=== PATIENT | female | born 1965 | race Caucasian/White ===

== ENCOUNTER 2018-02-22 08:20 | Emergency (ER) | payer MEDICARE, MEDICAID ==
[2018-02-22] MEDS ORDERED: NORMAL SALINE 1000 ML 1,000 ML IV ONE (09:01)
--- NOTE | 2018-02-22 09:22 | ER Document Report ---
ED General - General Chief Complaint: Possible Kidney Stone Stated Complaint: FLANK PAIN Time Seen by Provider: 02/22/18 08:32 - HPI Notes: Patient is a 52-year-old female that presents to the emergency department for chief complaint of back pain. Patient reports pain in her low back that is central. She states she feels this pain when she gets kidney stones. She has had kidney stone in the last few months and was seen by her urologist in [place]. Patient has chronic suprapubic Sanchez catheter which was changed on 01/31/18 by urology. She does report decreased appetite and decreased oral intake as well as decreased urine output. She has not had a bowel movement in 2 days. She denies any nausea and vomiting. She states her pain is worse when she lays on her side and slightly improved when she is laying on her back. She states his back pain feels the same as pain she has had with previous kidney stones. She denies injury or trauma. She denies any lower extremity numbness, weakness, saddle anesthesia, or fevers. Past Medical History: COPD, CHF, hypertension, hyperlipidemia, diabetes, ureterolithiasis Past Surgical History: Suprapubic Sanchez catheter Social History: Reviewed in chart Family History: Reviewed and noncontributory for presenting illness Allergies: Reviewed, see documented allergy list. REVIEW OF SYSTEMS: CONSTITUTIONAL : No fever No chills No diaphoresis No recent illness EENT: No vision changes No congestion No sore throat CARDIOVASCULAR: No chest pain No palpitations RESPIRATORY: No shortness of breath No cough No difficulty breathing GASTROINTESTINAL: No abdominal pain No nausea No vomiting No diarrhea GENITOURINARY: No dysuria No hematuria No difficulty urinating MUSCULOSKELETAL: back pain No leg pain No arm pain SKIN: No rashes No lesions LYMPHATIC: No swollen, enlarged glands. NEUROLOGICAL: No lightheadedness No headache No weakness No paresthesias PSYCHIATRIC: No anxiety No depression PHYSICAL EXAMINATION: Vital signs reviewed, nursing noted reviewed. GENERAL: Well-appearing, well-nourished and in no acute distress. HEAD: Atraumatic, normocephalic. EYES: Eyes appear normal, extraocular movements intact, sclera anicteric, conjunctiva are normal. ENT: nares patent, oropharynx clear without exudates. Moist mucous membranes. NECK: Normal range of motion, supple without lymphadenopathy LUNGS: Breath sounds clear to auscultation bilaterally and equal. No wheezes rales or rhonchi. HEART: Regular rate and rhythm without murmurs ABDOMEN: Suprapubic catheter ostomy clean, dry, intact with no drainage, abdomen soft, mildly distended, nontender, decreased bowel sounds. No rebound, guarding, or rigidity. No masses appreciated. EXTREMITIES: Nontender, good range of motion, no pitting or edema. Back: Diffuse lumbar tenderness to palpation, normal range of motion of spine, no thoracic tenderness, no overlying rash or erythema NEUROLOGICAL: No focal neurological deficits. Moves all extremities spontaneously Motor and sensory grossly intact on exam. PSYCH: Normal mood, normal affect. SKIN: Warm, Dry, normal turgor. - Related Data Allergies/Adverse Reactions: azithromycin [From Zithromax] Allergy (Verified 02/22/18 12:55) ciprofloxacin [From Cipro] Allergy (Verified 02/22/18 12:55) Penicillins Allergy (Verified 02/22/18 12:55) Sulfa (Sulfonamide Antibiotics) Allergy (Verified 02/22/18 12:55) Past Medical History - Social History Smoking Status: Current Some Day Smoker Family History: Reviewed & Not Pertinent Patient has suicidal ideation: No Patient has homicidal ideation: No - Past Medical History Cardiac Medical History: Reports: Hx Congestive Heart Failure, Hx Hypercholesterolemia, Hx Hypertension Pulmonary Medical History: Reports: Hx COPD Endocrine Medical History: Reports: Hx Diabetes Mellitus Type 2 Renal/ Medical History: Denies: Hx Peritoneal Dialysis GI Medical History: Reports: Hx Gastroesophageal Reflux Disease Psychiatric Medical History: Reports: Hx Depression Past Surgical History: Reports: Hx Gynecologic Surgery, Hx Kidney (Renal Surgery), Hx Orthopedic Surgery, Hx Urinary Tract Surgery Physical Exam - Vital signs Vitals: Resp BP Pulse Ox 20 148/89 H 95 02/22/18 08:34 02/22/18 08:34 02/22/18 08:34 Course - Re-evaluation Re-evalutation: 02/22/18 09:22 Vitals reviewed. Nursing notes reviewed. Patient is afebrile and nontoxic in appearance. She was given Toradol and fentanyl by EMS prior to arrival and s tates her pain has significantly improved. She will be given IV hydration in the emergency room. 02/22/18 13:[address] scan shows no ureterolithiasis. It does show moderate constipation and she was ordered magnesium citrate. Patient is refusing all interventions for her constipation including the magnesium citrate and enema. Patients Sanchez catheter was obstructed with sediment and was requiring replacement. I did perform this procedure with the assistance of her nurse. Patient tolerated replacement of her catheter well and the catheter is now functioning normally. Her renal function is unremarkable. She has no electrolyte derangements. Her urine is positive for infection and she will be started on Macrobid. Patient is not septic. She will follow with her urologist for reevaluation in the next few days. I did discuss her case with Dr. Rojas nurse practitioner who is in agreement with this plan of care. Laboratory 02/22/18 02/22/18 02/22/18 09:00 09:00 12:25 WBC 9.3 RBC 4.38 Hgb 11.5 L Hct 35.7 L MCV 81 MCH 26.2 L MCHC 32.2 RDW 16.0 H Plt Count 282 Seg Neutrophils % 79.9 H Lymphocytes % 11.3 L Monocytes % 6.0 Eosinophils % 2.5 Basophils % 0.3 Absolute Neutrophils 7.4 Absolute Lymphocytes 1.0 Absolute Monocytes 0.6 Absolute Eosinophils 0.2 Absolute Basophils 0.0 Sodium 142.8 Potassium 4.2 Chloride 105 Carbon Dioxide 30 Anion Gap 8 BUN 18 Creatinine 0.50 L Est GFR ( Amer) > 60 Est GFR (Non-Af Amer) > 60 Glucose 145 H Calcium 9.4 Total Bilirubin 0.6 Direct Bilirubin 0.3 Neonat Total Bilirubin Not Reportable Neonat Direct Bilirubin Not Reportable Neonat Indirect Bili Not Reportable AST 23 ALT 29 Alkaline Phosphatase 99 Total Protein 7.1 Albumin 4.1 Urine Color YELLOW Urine Appearance CLOUDY Urine pH 7.0 Ur Specific Ringle 1.009 Urine Protein NEGATIVE Urine Glucose (UA) NEGATIVE Urine Ketones NEGATIVE Urine Blood LARGE H Urine Nitrite POSITIVE H Urine Bilirubin NEGATIVE Urine Urobilinogen NEGATIVE Ur Leukocyte Esterase LARGE H Urine WBC (Auto) >182 Urine RBC (Auto) >182 Urine Bacteria (Auto) 3+ Urine WBC Clumps FEW U Non-Squamous Epis Auto 4 Urine Mucus (Auto) RARE Urine Yeast (Budding) PRESENT Urine Ascorbic Acid NEGATIVE Abdomen/Pelvis CT 02/22/18 09:00 IMPRESSION: 1. Moderate fecal retention. 2. Nonobstructing renal calculi. 02/22/18 13:04 - Vital Signs Vital signs: Temp Pulse Resp BP Pulse Ox 98.6 F 96 17 133/86 H 96 02/22/18 08:37 02/22/18 08:37 02/22/18 12:46 02/22/18 12:46 02/22/18 12:46 - Laboratory Result Diagrams: 02/22/18 09:00 02/22/18 09:00 Laboratory results interpreted by me: 02/22/18 02/22/18 02/22/18 09:00 09:00 12:25 Hgb 11.5 L Hct 35.7 L MCH 26.2 L RDW 16.0 H Seg Neutrophils % 79.9 H Lymphocytes % 11.3 L Creatinine 0.50 L Glucose 145 H Urine Blood LARGE H Urine Nitrite POSITIVE H Ur Leukocyte Esterase LARGE H Procedures - Additional Procedures catheter Time performed: 12:28 Notes: 02/22/18 12:28 Suprapubic Sanchez catheter replaced. Old catheter was removed after taking 20 cc normal saline out of the balloon. Using sterile technique a new catheter was replaced. 10 mL's of sterile saline were injected into the balloon. Ostomy was cleaned prior to insertion of catheter with Betadine. Let gel used to anesthetize area. Patient tolerated well with no immediate complications. Good urine flow was obtained. Discharge - Discharge Clinical Impression: Urinary retention UTI (urinary tract infection) Qualifiers: Urinary tract infection type: site unspecified Hematuria presence: with hematuria Qualified Code(s): N39.0 - Urinary tract infection, site not specified; R31.9 - Hematuria, unspecified Constipation Qualifiers: Constipation type: other constipation type Qualified Code(s): K59.09 - Other constipation Condition: Stable Disposition: HOME, SELF-CARE Instructions: Urinary Tract Infection ([facility]) Additional Instructions: Please return to the emergency department if you have any worsening, or concern of your symptoms. Please return to the emergency department if you develop chest pain, difficulty breathing, severe abdominal pain, or ongoing vomiting. Please follow-up with your primary care physician in 2-3 days and any other recommended physicians. If prescribed, take all medications as directed. If you have any questions or concerns do not hesitate to return the emergency department for evaluation. Follow-up with your urologist, Dr. Olivier, in the next few days for reevaluation Prescriptions: Nitrofurantoin Macrocrystal [Macrodantin] 100 mg PO BID #20 capsule
--- NOTE | 2018-02-22 09:34 | RADIOLOGY REPORT (SQ) ---
EXAM DESCRIPTION: CT ABD/PELVIS NO ORAL OR IV COMPLETED DATE/TIME: 02/22/2018 9:19 am REASON FOR STUDY: low back pain, kidney stone COMPARISON: None. TECHNIQUE: CT scan of the abdomen and pelvis performed without intravenous or oral contrast. Images reviewed with lung, soft tissue, and bone windows. Reconstructed coronal and sagittal MPR images revi ewed. All images stored on PACS. All CT scanners at this facility use dose modulation, iterative reconstruction, and/or weight based d osing when appropriate to reduce radiation dose to as low as reasonably achievable (ALARA). [facility]: Dose Right [facility]: CareDose [facility]: Dose Right [facility]: Teradose 4D [facility]: [employer] RADIATION DOSE: CT Rad equipment meets quality standard of care and radiation dose reduction techniq ues were employed. CTDIvol: 17.0 mGy. DLP: 958 mGy-cm.mGy. LIMITATIONS: None. FINDINGS: LOWER CHEST: No significant findings. No nodules or infiltrates. NON-CONTRASTED LIVER, SPLEEN, ADRENALS: Evaluation limited by lack of IV contrast. No identified sign ificant masses. PANCREAS: No masses. No peripancreatic inflammatory changes. GALLBLADDER: Surgically absent. RIGHT KIDNEY AND URETER: No suspicious masses. Assessment limited by lack of IV contrast. Renal sonali culi measuring up to 10 mm. No hydronephrosis or hydroureter. LEFT KIDNEY AND URETER: No suspicious masses. Assessment limited by lack of IV contrast. Reason sonali culi measuring up to 1 mm. No hydronephrosis or hydroureter. AORTA AND RETROPERITONEUM: No aneurysm. No retroperitoneal masses or adenopathy. BOWEL AND PERITONEAL CAVITY: Abundant fecal material from the cecum to the rectum. APPENDIX: Not visualized. PELVIS, BLADDER, AND ABDOMINAL WALL:Sanchez catheter in urinary bladder. BONES: Nothing acute. OTHER: No other significant finding. IMPRESSION: 1. Moderate fecal retention. 2. Nonobstructing renal calculi. COMMENT: Quality ID # [id number]: Final reports with documentation of one or more dose reduction techniques (e.g., Automated exposure control, adjustment of the mA and/or kV according to patient size, use of iterative reconstruction technique) TECHNICAL DOCUMENTATION: JOB ID: [id number] [employer]- All Rights Reserved Reading location - IP/workstation name: [email or web address]
[2018-02-22] MEDS ORDERED: MAGNESIUM CITRATE 296 ML BOTTLE PO ONE (09:41)
[2018-02-22 09:47] LABS: ABSOLUTE EOSINOPHILS # (AUTO) 0.2 10^3/uL (0.0-0.6); ABSOLUTE MONOCYTES (AUTO) 0.6 10^3/uL (0.1-1.4); ABSOLUTE NEUT (AUTO) 7.4 10^3/uL (1.7-8.2); BASOPHILS % (AUTO) 0.3 % (0-2); EOSINOPHILS % (AUTO) 2.5 % (0-6); HEMATOCRIT 35.7 % (36.0-47.0); HEMOGLOBIN 11.5 g/dL (12.0-15.5); LYMPHOCYTES % (AUTO) 11.3 % (13-45); MEAN CORPUSCULAR HEMOGLOBIN 26.2 pg (27.0-33.4); MEAN CORPUSCULAR HGB CONC 32.2 g/dL (32.0-36.0); MEAN CORPUSCULAR VOLUME 81 fl (80-97); PLATELET COUNT 282 10^3/uL (150-450); RED BLOOD COUNT 4.38 10^6/uL (3.72-5.28); SEGMENTED NEUTROPHILS % (AUTO) 79.9 % (42-78); TOTAL CELLS COUNTED % (AUTO) 100 %; WHITE BLOOD COUNT 9.3 10^3/uL (4.0-10.5)
[2018-02-22 10:14] LABS: ALANINE AMINOTRANSFERASE 29 U/L (9-52); ALBUMIN 4.1 g/dL (3.5-5.0); ALKALINE PHOSPHATASE 99 U/L (38-126); ANION GAP 8 (5-19); ASPARTATE AMINO TRANSFERASE 23 U/L (14-36); BILIRUBIN,DIRECT 0.3 mg/dL (0.0-0.4); BILIRUBIN,TOTAL 0.6 mg/dL (0.2-1.3); BLOOD UREA NITROGEN 18 mg/dL (7-20); CALCIUM 9.4 mg/dL (8.4-10.2); CARBON DIOXIDE 30 mmol/L (22-30); CHLORIDE 105 mmol/L (98-107); GLUCOSE 145 mg/dL (75-110); POTASSIUM 4.2 mmol/L (3.6-5.0); SODIUM 142.8 mmol/L (137-145); TOTAL PROTEIN 7.1 g/dL (6.3-8.2)
[2018-02-22] MEDS ORDERED: LIDOCAINE 4%/TETRACAINE 0.5%/EPI 0.18% 5 ML TOPICAL SOLN TOP ONE (12:20)
[2018-02-22 12:51] LABS: APPEARANCE,URINE CLOUDY; BILIRUBIN,URINE NEGATIVE (NEGATIVE); COLOR,URINE YELLOW; GLUCOSE, URINE NEGATIVE (NEGATIVE); KETONES,URINE NEGATIVE (NEGATIVE); LEUKOCYTE ESTERASE,URINE LARGE (NEGATIVE); NITRITE,URINE POSITIVE (NEGATIVE); PROTEIN,URINE NEGATIVE (NEGATIVE); URINE SPECIFIC GRAVITY 1.009; UROBILINOGEN,URINE NEGATIVE mg/dL (<2.0)
[2018-02-22] MEDS ORDERED: NITROFURANTOIN MONOHYD/M-CRYST 100 MG CAPSULE PO ONE (13:00)
[2018-02-22 18:29] VITALS: BP 139/87
== END 2018-02-22 16:40 | disposition home or self-care (01) ==
LOC: ER 08:20
DX: N39.0 Urinary tract infection, site not specified (principal); K59.09 Other constipation; R33.9 Retention of urine, unspecified; R10.9 Unspecified abdominal pain; M54.9 Dorsalgia, unspecified; Z46.6 Encounter for fitting and adjustment of urinary device; J44.9 Chronic obstructive pulmonary disease, unspecified; I50.9 Heart failure, unspecified; E78.5 Hyperlipidemia, unspecified; E11.9 Type 2 diabetes mellitus without complications; Z87.442 Personal history of urinary calculi; Z88.3 Allergy status to other anti-infective agents; Z88.0 Allergy status to penicillin; Z88.2 Allergy status to sulfonamides; F17.200 Nicotine dependence, unspecified, uncomplicated
CPT/HCPCS: 99285; 96360; 51702; 36415; 87086; 85025; 87088; 80053; 81001; 87186; 74176; C1758; J3490; J7030; A9270; J8499

== ENCOUNTER 2018-02-24 23:06 | Emergency (ER) | payer MEDICARE, MEDICAID ==
[2018-02-25] MEDS ORDERED: SENNOSIDES/DOCUSATE 8.6-50 MG 1 EACH TABLET PO ONE (01:31)
[2018-02-25] MEDS ORDERED: POLYETHYLENE GLYCOL 3350 POWDER 17 GM/1 PACKET PO ONE (01:31)
[2018-02-25] MEDS ORDERED: CEPHALEXIN 500 MG CAPSULE PO ONE (01:31)
--- NOTE | 2018-02-25 01:34 | ER Document Report ---
ED General - General Chief Complaint: Constipation Stated Complaint: CONSTIPATED Time Seen by Provider: 02/25/18 00:46 Cannot obtain history due to: Uncooperative Notes: Patient is a 52-year-old female with a past medical history of cerebral palsy, remote history of a small bowel obstruction, presents with complaints of continuing to be very constipated. Patient was seen in the emergency department 2 days ago for the same, had a negative CT scan of the abdomen pelvis beyond showing fecal retention. Patient reports that she is taking magnesium citrate and MiraLAX at home without any relief, has not had a bowel movement. This is her only main complaint today. The patient is otherwise a very poor, tangential historian, she did because her abdomen is so distended she feels like it makes it difficult for her to breathe but denies distinct shortness of breath. She has not yet followed up with her primary care doctor regarding today's concerns. She has not had any vomiting. Has been able to tolerate oral intake without difficulty. TRAVEL OUTSIDE OF THE [place] IN LAST 30 DAYS: No - Related Data Allergies/Adverse Reactions: acetaminophen [From Darvocet-N] Allergy (Verified 02/25/18 01:52) albuterol Allergy (Verified 02/25/18 01:52) azithromycin [From Zithromax] Allergy (Verified 02/22/18 12:55) ciprofloxacin [From Cipro] Allergy (Verified 02/22/18 12:55) coconut Allergy (Verified 02/25/18 01:52) latex Allergy (Verified 02/25/18 01:52) magnesium Allergy (Verified 02/25/18 01:52) nitrofurantoin Allergy (Verified 02/25/18 01:52) oxycodone [From Percocet] Allergy (Verified 02/25/18 01:52) Penicillins Allergy (Verified 02/22/18 12:55) pork derived (porcine) Allergy (Verified 02/25/18 01:52) propoxyphene Allergy (Verified 02/25/18 01:52) Sulfa (Sulfonamide Antibiotics) Allergy (Verified 02/22/18 12:55) Past Medical History - General Information source: Patient - Social History Smoking Status: Never Smoker Frequency of alcohol use: None Drug Abuse: None Lives with: Family Family History: Reviewed & Not Pertinent - Past Medical History Cardiac Medical History: Reports: Hx Congestive Heart Failure, Hx Hypercholesterolemia, Hx Hypertension Pulmonary Medical History: Reports: Hx COPD Endocrine Medical History: Reports: Hx Diabetes Mellitus Type 2 Renal/ Medical History: Denies: Hx Peritoneal Dialysis GI Medical History: Reports: Hx Gastroesophageal Reflux Disease Psychiatric Medical History: Reports: Hx Depression Past Surgical History: Reports: Hx Gynecologic Surgery, Hx Kidney (Renal Surgery), Hx Orthopedic Surgery, Hx Urinary Tract Surgery Review of Systems - Review of Systems Notes: Constitutional: Negative for fever. HENT: Negative for sore throat. Eyes: Negative for visual changes. Cardiovascular: Negative for chest pain. Respiratory: Negative for shortness of breath. Gastrointestinal: Positive for abdominal fullness and constipation Genitourinary: Negative for dysuria. Musculoskeletal: Negative for back pain. Skin: Negative for rash. Neurological: Negative for headaches, weakness or numbness. 10 point ROS negative except as marked above and in HPI. Physical Exam - Vital signs Vitals: Temp Pulse Resp BP Pulse Ox 98.2 F 90 18 151/96 H 96 02/24/18 23:17 02/24/18 23:17 02/24/18 23:17 02/24/18 23:17 02/24/18 23:17 Interpretation: Hypertensive Notes: PHYSICAL EXAMINATION: GENERAL: Appears chronically ill but in no acute distress HEAD: Atraumatic, normocephalic. EYES: Pupils equal round and reactive to light, extraocular movements intact, sclera anicteric, conjunctiva are normal. ENT: nares patent, oropharynx clear without exudates. Moist mucous membranes. NECK: Normal range of motion, supple without lymphadenopathy LUNGS: Breath sounds clear to auscultation bilaterally and equal. No wheezes rales or rhonchi. HEART: Regular rate and rhythm without murmurs ABDOMEN: Soft, mildly distended, nontender, normoactive bowel sounds. No guarding, no rebound. No masses appreciated. EXTREMITIES: Normal range of motion, no pitting or edema. No cyanosis. NEUROLOGICAL: Cerebral palsy contractures at baseline. PSYCH: Normal mood, normal affect. SKIN: Warm, Dry, normal turgor, no rashes or lesions noted. Course - Re-evaluation Re-evalutation: 02/25/18 01:31 Patient presents with complaints of abdominal fullness and protuberance, no bowel movement for the past 6 days. She has not vomiting. She was seen 2 days ago for the same, CT scan of the abdomen pelvis without any evidence of acute obstruction, did show severe constipation. Patient refused treatment at that time, has taken a bottle of mag citrate and 2 capfuls of MiraLAX at home without relief. She presents to the emergency department because she has not had a bowel movement. Nothing is otherwise new or different regarding her symptoms. The patient is a difficult historian, does bring up multiple concerns but then states that these are not new or different today and has to be redirected back to what exactly prior to the emergency department today over the course of 25 minutes at the bedside. We have also agreed to get a chest x-ray today as the patient states that sometimes she feels like the abdominal fullness makes her short of breath but denies any current shortness of breath. Vitals are otherwise within normal limits. I do not see an indication to repeat labs or CT imaging the abdomen pelvis today as I do not clinically suspect an acute bowel obstruction, patient has no focal abdominal tenderness on exam, states her only concern is that she is unable to bowel movement. Review of her urine culture from previous visit does show that she is resistant to the Macrobid with which she had been treated for her catheter associated infection. She is being started on cephalexin in place of Macrobid. - Vital Signs Vital signs: Temp Pulse Resp BP Pulse Ox 98.2 F 90 18 151/96 H 96 02/24/18 23:17 02/24/18 23:17 02/24/18 23:17 02/24/18 23:17 02/24/18 23:17 Discharge - Discharge Clinical Impression: Constipation Qualifiers: Constipation type: unspecified constipation type Qualified Code(s): K59.00 - Constipation, unspecified UTI (urinary tract infection) Qualifiers: Urinary tract infection type: catheter-associated UTI Indwelling urinary cath eter type: unspecified Encounter type: subsequent encounter Qualified Code(s): T83.511D - Infection and inflammatory reaction due to indwelling urethral catheter, subsequent encounter Condition: Good Disposition: HOME, SELF-CARE Additional Instructions: For your constipation: You should take 8 caps of MiraLAX and placed in 1 liter of Gatorade. Drink one half of the solution and wait 4 hours. If you do not have a bowel movement take the remaining half of the solution. Please discontinue the Macrobid with your discharge 2 days ago. Begin taking cephalexin as you are resistant to Macrobid based on your previous culture data from the last visit to the emergency department. Your chest x-ray is normal today. Return if you develop increasing abdominal pain, vomiting, fever greater than 100.4 F, or any other symptoms that are worrisome to you. Prescriptions: Levofloxacin [Levaquin 500 mg Tablet] 500 mg PO DAILY #7 tablet
[2018-02-25] MEDS ORDERED: LEVOFLOXACIN 500 MG TABLET PO ONE (01:56)
--- NOTE | 2018-02-25 02:13 | RADIOLOGY REPORT (SQ) ---
EXAM DESCRIPTION: XR CHEST 1 VIEW COMPLETED DATE/TME: 02/25/2018 01:30 CLINICAL HISTORY: 52 years, Female, sob COMPARISON: None. NUMBER OF VIEWS: 1 TECHNIQUE: Frontal view chest LIMITATIONS: None. FINDINGS: Heart size is normal. Osteopenia. Lungs are clear. No pneumothorax IMPRESSION: Negative chest copyright 2010 [employer]- All Rights Reserved
[2018-02-25 04:12] VITALS: BP 137/84
== END 2018-02-25 04:21 | disposition home or self-care (01) ==
LOC: ER 23:06
DX: K59.00 Constipation, unspecified (principal); T83.511D Infection and inflammatory reaction due to indwelling urethral catheter, subsequent encounter; G80.9 Cerebral palsy, unspecified; I50.9 Heart failure, unspecified; I11.0 Hypertensive heart disease with heart failure; J44.9 Chronic obstructive pulmonary disease, unspecified; E11.9 Type 2 diabetes mellitus without complications
CPT/HCPCS: 99284; 71045; A9270 ×2; J3490

== ENCOUNTER 2018-04-05 22:50 | Emergency (ER) | payer MEDICARE, MEDICAID ==
[2018-04-05] MEDS ORDERED: MORPHINE SULFATE 10 MG/ML INJ IV ONE (23:11)
[2018-04-05] MEDS ORDERED: KETOROLAC TROMETHAMINE INJ/PF 30 MG/1 ML SDV IV ONE (23:13)
[2018-04-05] MEDS ORDERED: NORMAL SALINE 1000 ML 1,000 ML IV ONE (23:13)
[2018-04-05] MEDS ORDERED: DEXAMETHASONE SOD PHOS INJ 10 MG/1 ML VIAL IV ONE (23:19)
--- NOTE | 2018-04-05 23:20 | ER Document Report ---
ED General - General Chief Complaint: Headache Stated Complaint: HEADACHE Time Seen by Provider: 04/05/18 22:57 Primary Care Provider: MERCY ENCINAS FNP [Primary Care Provider] - Follow up as needed Mode of Arrival: Medic Information source: Patient TRAVEL OUTSIDE OF THE [place] IN LAST 30 DAYS: No - HPI Patient complains to provider of: Headache, arm paresthesia Onset: Other - Past couple of days Onset/Duration: Gradual Quality of pain: Throbbing Severity: Moderate Associated symptoms: denies: Chills, Fever Exacerbated by: Denies Relieved by: Denies Similar symptoms previously: No Recently seen / treated by doctor: No Notes: Patient is a 52-year-old female with history of cerebral palsy and paraplegia. Complaining of occipital headache that goes down her neck and is causing some paresthesias in her arms. History of headaches frequently in the past. History of muscle spasticity in the neck. Symptoms have been going on for 2-3 days. Patient has full movement of her arms. No fevers or shaking chills. No nausea vomiting or diarrhea. Asking for something "strong" like Dilaudid. - Related Data Allergies/Adverse Reactions: acetaminophen [From Darvocet-N] Allergy (Verified 02/25/18 01:52) albuterol Allergy (Verified 02/25/18 01:52) azithromycin [From Zithromax] Allergy (Verified 02/22/18 12:55) ciprofloxacin [From Cipro] Allergy (Verified 02/22/18 12:55) coconut Allergy (Verified 02/25/18 01:52) latex Allergy (Verified 02/25/18 01:52) magnesium Allergy (Verified 02/25/18 01:52) nitrofurantoin Allergy (Verified 02/25/18 01:52) oxycodone [From Percocet] Allergy (Verified 02/25/18 01:52) Penicillins Allergy (Verified 02/22/18 12:55) pork derived (porcine) Allergy (Verified 02/25/18 01:52) propoxyphene Allergy (Verified 02/25/18 01:52) Sulfa (Sulfonamide Antibiotics) Allergy (Verified 02/22/18 12:55) Past Medical History - General Information source: Patient - Social History Smoking Status: Never Smoker Family History: Reviewed & Not Pertinent - Past Medical History Cardiac Medical History: Reports: Hx Congestive Heart Failure, Hx Hypercholesterolemia, Hx Hypertension Pulmonary Medical History: Reports: Hx COPD Endocrine Medical History: Reports: Hx Diabetes Mellitus Type 2 Renal/ Medical History: Denies: Hx Peritoneal Dialysis GI Medical History: Reports: Hx Gastroesophageal Reflux Disease Psychiatric Medical History: Reports: Hx Depression Past Surgical History: Reports: Hx Gynecologic Surgery, Hx Kidney (Renal Surgery), Hx Orthopedic Surgery, Hx Urinary Tract Surgery Review of Systems - Review of Systems Notes: Constitutional: No fevers. No chills. EENT: No eye redness. No eye pain. No ear pain. No sore throat. Cardiovascular: No chest pain. No palpitations. Respiratory: No cough. No shortness of breath. No respiratory distress. Gastrointestinal: No abdominal pain. No nausea, vomiting, or diarrhea. Genitourinary: Atraumatic. No lesions. No pain. No discharge. Musculoskeletal: Atraumatic. No swelling. No deformities. Skin: No rash or lesions. Lymphatic: No swollen lymph nodes. Neurologic: "Pins and needles", HEADACHE Psychiatric: No suicidal or homicidal ideation. Physical Exam - Vital signs Vitals: Temp Pulse Resp BP Pulse Ox 99.2 F 108 H 16 161/91 H 100 04/05/18 22:50 04/05/18 22:50 04/05/18 22:50 04/05/18 22:50 04/05/18 22:50 - Notes Notes: General: Well-developed, well-nourished. In no acute distress. Non-toxic appearing. Cardiac: Well-perfused. Regular rate and rhythm. No murmurs, rubs, or gallops. Pulmonary: No respiratory distress. No cyanosis. Bilateral lung fiels are clear to auscultation. Abdominal: Non-distended. Non-rigid. Bowels sounds are present in all four quadrants. No guarding or rebound. HEENT: Head is atraumatic. Conjunctivae not reddened. No tearing. PERRL. EOMI. Orbits atraumatic. No periorbital swelling or erythema. Oropharynx is without erythema, swelling, or exudates. Multiple missing teeth. Dentition in poor repair Neck: Supple. No adenopathy. No meningismus. Bilateral cervical muscle spasms Dermatologic: Warm with good turgor. No rash. Atraumatic. Chest: Atraumatic. No chest wall tenderness to palpation. Musculoskeletal: Moves all extremities well. No range of motion deficits. no muscular or joint tenderness. No paraspinal muscle tenderness. no midline spinal tenderness or step-off. Genitourinary: Examination deferred Neurologic: No gross neurologic deficits Psychiatric: Normal mood. Course - Re-evaluation Re-evalutation: 04/06/18 00:[address] scans are back. Some arthritic changes on the cervical spine. The head CT is normal except for typical cerebral palsy findings. Has no neurologic deficits. She is moving her arms around freely. There is no weakness. The history given fits with a cervical radiculopathy. I do not think this patient has had a stroke or TIA. I will put her on a steroid pack and some Vicoprofen and have her follow-up with her doctor in a day or 2. - Vital Signs Vital signs: Temp Pulse Resp BP Pulse Ox 99.2 F 108 H 16 161/91 H 100 04/05/18 22:50 04/05/18 22:50 04/05/18 22:50 04/05/18 22:50 04/05/18 22:50 - Diagnostic Test Radiology reviewed: Reports reviewed Discharge - Discharge Clinical Impression: Cervical radiculopathy Headache Qualifiers: Headache type: unspecified Headache chronicity pattern: acute headache Intractability: not intractable Qualified Code(s): R51 - Headache Condition: Good Disposition: HOME, SELF-CARE Instructions: Headache ([facility]), Radiculopathy ([facility]), Pain Medication Injection ([facility]), Oral Narcotic Medication ([facility]) Additional Instructions: Please follow-up with your primary care doctor either tomorrow or the next day. If your symptoms get significantly worse YOU may return to the emergency department at any time for reevaluation. Prescriptions: Hydrocodone/Ibuprofen [Hydrocodone-Ibuprofen 7.5-200] 1 each PO Q6HP PRN #10 tablet PRN Reason: Methylprednisolone [Medrol Dosepack (4 mg/Tab) 21 Tab/Dosepak] 21 tab PO DAILY #1 dspk Referrals: MERCY ENCINAS FNP [Primary Care Provider] - Follow up tomorrow
--- NOTE | 2018-04-06 00:42 | RADIOLOGY REPORT (SQ) ---
EXAM DESCRIPTION: CT HEAD WITHOUT IV CONTRAST COMPLETED DATE/TME: 04/05/2018 23:08 CLINICAL HISTORY: 52 years, Female, HEADACHE NECK PAIN ARM PAIN This exam was performed according to our departmental dose-optimization program which includes automated exposure control, adjustment of the mA and/or kVp according to patient size and/or use of iterative reconstruction technique where applicable. FINDINGS: No acute intracranial hemorrhage, mass effect or midline shift. No extra-axial fluid collections. Ventricles and subarachnoid spaces are mildly dilated consistent with cerebral atrophy. Visualized paranasal sinuses and the mastoid air cells are clear. The skull is intact. IMPRESSION: No acute intracranial hemorrhage. Mild cerebral atrophy.
--- NOTE | 2018-04-06 00:43 | RADIOLOGY REPORT (SQ) ---
EXAM DESCRIPTION: CT CERVICAL SPINE WITHOUT IV CONTRAST COMPLETED DATE/TME: 04/05/2018 23:09 CLINICAL HISTORY: 52 years, Female, ARM PARESTHESIAS This exam was performed according to our departmental dose-optimization program which includes automated exposure control, adjustment of the mA and/or kVp according to patient size and/or use of iterative reconstruction technique where applicable. FINDINGS: Vertebral body heights are intact. Alignment is intact. No subluxation. Mild multilevel degenerative changes from C2 through C7. Facets are normally aligned. No significant prevertebral soft tissue swelling. The odontoid process is intact. IMPRESSION: Mild degenerative changes. No fracture.
[2018-04-06] MEDS ORDERED: DIAZEPAM INJ 10 MG/2 ML DISP.SYRIN IV ONE (00:57)
[2018-04-06 07:57] VITALS: BP 119/72
== END 2018-04-06 07:56 | disposition home or self-care (01) ==
LOC: ER 22:50
DX: M54.12 Radiculopathy, cervical region (principal); R51 Headache; R20.2 Paresthesia of skin; G80.8 Other cerebral palsy; M54.2 Cervicalgia; J44.9 Chronic obstructive pulmonary disease, unspecified; E11.9 Type 2 diabetes mellitus without complications; I50.9 Heart failure, unspecified; I11.0 Hypertensive heart disease with heart failure
CPT/HCPCS: 99284; 96361; 96374; 96375; 70450; 72125; J3360; J1885; J2270; J7030; J1100

== ENCOUNTER 2018-04-18 16:43 | Emergency (ER) | payer MEDICARE, MEDICAID ==
[2018-04-18] MEDS ORDERED: CLINDAMYCIN HCL 150 MG CAPSULE PO ONE (17:14)
[2018-04-18] MEDS ORDERED: HYDROCODONE/ACETAMINOPHEN 5-325 MG TABLET PO ONE (17:14)
--- NOTE | 2018-04-18 19:11 | ER Document Report ---
ED General - General Chief Complaint: Mouth Problem Stated Complaint: MOUTH PAIN Time Seen by Provider: 04/18/18 16:58 Primary Care Provider: MERCY ENCINAS FNP [Primary Care Provider] - Follow up as needed TRAVEL OUTSIDE OF THE [place] IN LAST 30 DAYS: No - HPI Notes: Patient presents to the emergency department for evaluation of dental pain. Is been ongoing for months. She can get a dentist appointment until the beginning of next month. She believes her gums are swollen. She denies any fevers or chills. No difficulty breathing. - Related Data Allergies/Adverse Reactions: acetaminophen [From Darvocet-N] Allergy (Verified 02/25/18 01:52) albuterol Allergy (Verified 02/25/18 01:52) azithromycin [From Zithromax] Allergy (Verified 02/22/18 12:55) ciprofloxacin [From Cipro] Allergy (Verified 02/22/18 12:55) coconut Allergy (Verified 02/25/18 01:52) latex Allergy (Verified 02/25/18 01:52) magnesium Allergy (Verified 02/25/18 01:52) nitrofurantoin Allergy (Verified 02/25/18 01:52) oxycodone [From Percocet] Allergy (Verified 02/25/18 01:52) Penicillins Allergy (Verified 02/22/18 12:55) pork derived (porcine) Allergy (Verified 02/25/18 01:52) propoxyphene Allergy (Verified 02/25/18 01:52) Sulfa (Sulfonamide Antibiotics) Allergy (Verified 02/22/18 12:55) Past Medical History - 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 - Social History Smoking Status: Never Smoker Chew tobacco use (# tins/day): No Frequency of alcohol use: None Drug Abuse: None Family History: Reviewed & Not Pertinent Patient has suicidal ideation: No Patient has homicidal ideation: No - Past Medical History Cardiac Medical History: Reports: Hx Congestive Heart Failure, Hx Hypercholesterolemia, Hx Hypertension Pulmonary Medical History: Reports: Hx COPD Endocrine Medical History: Reports: Hx Diabetes Mellitus Type 2 Renal/ Medical History: Denies: Hx Peritoneal Dialysis GI Medical History: Reports: Hx Gastroesophageal Reflux Disease Psychiatric Medical History: Reports: Hx Depression Past Surgical History: Reports: Hx Gynecologic Surgery, Hx Kidney (Renal Surgery), Hx Orthopedic Surgery, Hx Urinary Tract Surgery Review of Systems - Review of Systems Constitutional: No symptoms reported EENT: No symptoms reported Cardiovascular: No symptoms reported, Dyspnea Gastrointestinal: No symptoms reported Genitourinary: Other - Prepubic catheter Musculoskeletal: No symptoms reported Skin: No symptoms reported Neurological/Psychological: No symptoms reported Physical Exam - Vital signs Vitals: Temp Pulse Resp BP Pulse Ox 98.0 F 63 16 105/68 97 04/18/18 16:56 04/18/18 16:56 04/18/18 16:56 04/18/18 16:56 04/18/18 16:56 - Notes Notes: Vital signs reviewed, please refer to chart. Patient is normocephalic, atraumatic. Dentition is in extremely poor condition. There is a very mild gingival edema noted in the anterior mandible. There is no sublingual edema. There is no facial edema or erythema. Pupils equal round, reactive to light. Neck is supple without meningismus. Heart is regular rate and rhythm. Lungs are clear to auscultation bilaterally. Abdomen is soft, nontender, normoactive bowel sounds throughout. Suprapubic catheter in place without surrounding erythema, induration, or edema. Extremities without cyanosis, clubbing, edema. Peripheral pulses are equal. Skin is warm and dry. Course - Re-evaluation Re-evalutation: 04/18/18 19:09 Patient presents to the emergency department for evaluation. She is concerned about the swelling so she is given a dose of clindamycin here. She is penicillin allergic. Also send her with a small amount of [place]. She is to see a dentist as soon as possible. She is return to the emergency department with worsening or new concerning symptoms. - Vital Signs Vital signs: Temp Pulse Resp BP Pulse Ox 98.0 F 63 16 105/68 97 04/18/18 16:56 04/18/18 16:56 04/18/18 16:56 04/18/18 16:56 04/18/18 16:56 Discharge - Discharge Clinical Impression: Dental caries, Odontalgia Condition: Stable Disposition: HOME, SELF-CARE Instructions: Oral Narcotic Medication ([facility]), Toothache ([facility]) Additional Instructions: Medication as prescribed. See a dentist as soon as possible. Return to the emergency department with worsening or new concerning symptoms. Referrals: ENCINAS,MERCY W, MECHANICAL SYSTEMS ENGINEER [Primary Care Provider] - Follow up as needed
[2018-04-19 00:04] VITALS: BP 125/86
== END 2018-04-19 00:05 | disposition home or self-care (01) ==
LOC: ER 16:43
DX: K02.9 Dental caries, unspecified (principal); K08.89 Other specified disorders of teeth and supporting structures; I10 Essential (primary) hypertension; E11.9 Type 2 diabetes mellitus without complications; J44.9 Chronic obstructive pulmonary disease, unspecified; Z88.6 Allergy status to analgesic agent; Z88.8 Allergy status to other drugs, medicaments and biological substances; Z88.1 Allergy status to other antibiotic agents; Z91.018 Allergy to other foods; Z91.040 Latex allergy status; Z88.5 Allergy status to narcotic agent; Z88.0 Allergy status to penicillin; Z88.2 Allergy status to sulfonamides
CPT/HCPCS: 99283; 82962; A9270 ×2

== ENCOUNTER 2018-04-26 21:28 | Inpatient (IN) | payer MEDICARE, MEDICAID ==
--- NOTE | 2018-04-26 22:18 | RADIOLOGY REPORT (SQ) ---
EXAM DESCRIPTION: XR CHEST 1 VIEW COMPLETED DATE/TME: 04/26/2018 21:47 CLINICAL HISTORY: 52 years, Female, fever Findings: The heart is mildly enlarged. No consolidation or pleural effusion. No pulmonary edema or pneumothorax. IMPRESSION: No acute disease.
[2018-04-26 22:45] LABS: VENOUS BLOOD BASE EXCESS 0.3 mmol/L; VENOUS BLOOD HCO3 24.7 mmol/L (20-32); VENOUS BLOOD PCO2 39.3 mmHg (35-63); VENOUS BLOOD PH 7.42 (7.30-7.42)
[2018-04-26 22:46] LABS: ABSOLUTE BASOPHILS # (AUTO) 0.1 10^3/uL (0.0-0.2); ABSOLUTE EOSINOPHILS # (AUTO) 0.2 10^3/uL (0.0-0.6); ABSOLUTE LYMPHOCYTES (AUTO) 2.2 10^3/uL (0.5-4.7); ABSOLUTE MONOCYTES (AUTO) 0.6 10^3/uL (0.1-1.4); ABSOLUTE NEUT (AUTO) 5.4 10^3/uL (1.7-8.2); BASOPHILS % (AUTO) 0.6 % (0-2); EOSINOPHILS % (AUTO) 2.3 % (0-6); HEMATOCRIT 35.4 % (36.0-47.0); HEMOGLOBIN 11.7 g/dL (12.0-15.5); LYMPHOCYTES % (AUTO) 26.3 % (13-45); MEAN CORPUSCULAR VOLUME 79 fl (80-97); MONOCYTES % (AUTO) 6.8 % (3-13); PLATELET COUNT 360 10^3/uL (150-450); RED BLOOD COUNT 4.49 10^6/uL (3.72-5.28); RED CELL DISTRIBUTION WIDTH 17.1 % (11.5-14.0); TOTAL CELLS COUNTED % (AUTO) 100 %; WHITE BLOOD COUNT 8.4 10^3/uL (4.0-10.5)
[2018-04-26 22:51] LABS: INTERNATIONAL RATION (INR) 0.89; PROTHROMBIN TIME 12.5 SEC (11.4-15.4)
[2018-04-26 23:02] LABS: ALANINE AMINOTRANSFERASE 20 U/L (9-52); ALBUMIN 4.5 g/dL (3.5-5.0); ALKALINE PHOSPHATASE 78 U/L (38-126); ANION GAP 12 (5-19); ASPARTATE AMINO TRANSFERASE 21 U/L (14-36); BILIRUBIN,DIRECT 0.2 mg/dL (0.0-0.4); BILIRUBIN,TOTAL 0.4 mg/dL (0.2-1.3); BLOOD UREA NITROGEN 15 mg/dL (7-20); CALCIUM 10.2 mg/dL (8.4-10.2); CARBON DIOXIDE 27 mmol/L (22-30); CHLORIDE 102 mmol/L (98-107); GLUCOSE 115 mg/dL (75-110); POTASSIUM 4.3 mmol/L (3.6-5.0); SODIUM 140.9 mmol/L (137-145); TOTAL PROTEIN 7.6 g/dL (6.3-8.2)
--- NOTE | 2018-04-26 23:39 | ER Document Report ---
ED General - General TRAVEL OUTSIDE OF THE [place] IN LAST 30 DAYS: No <SHANE KAT - Last Filed: 04/26/18 23:38> <ESPERANZA CAMARGO - Last Filed: 04/27/18 01:07> - General Chief Complaint: Fever Stated Complaint: FEVER,NAUSEA,DIARRHEA Time Seen by Provider: 04/26/18 23:38 Primary Care Provider: MERCY ENCINAS FNP [Primary Care Provider] - Follow up as needed Notes: Is a 52-year-old male with a chief complaint of nausea and vomiting documentati on was completed using voice recognition software, therefore there may be some unintended grammatical or punctual errors. She has had her nausea for the past 3 days and she has vomited once today. She states that she felt like she had a fever today. Her temperature in route from EMS was 99.3. She does have an indwelling Sanchez catheter that she has had in for the past 56 days. Her past medical history includes cerebral palsy, COPD, asthma, and diabetes. She also reports some diarrhea. She has not seen her primary care provider in regards to this issue. (ESPERANZA CAMARGO) - Related Data Allergies/Adverse Reactions: acetaminophen [From Darvocet-N] Allergy (Verified 02/25/18 01:52) albuterol Allergy (Verified 02/25/18 01:52) azithromycin [From Zithromax] Allergy (Verified 02/22/18 12:55) ciprofloxacin [From Cipro] Allergy (Verified 02/22/18 12:55) coconut Allergy (Verified 02/25/18 01:52) latex Allergy (Verified 02/25/18 01:52) magnesium Allergy (Verified 02/25/18 01:52) nitrofurantoin Allergy (Verified 02/25/18 01:52) oxycodone [From Percocet] Allergy (Verified 02/25/18 01:52) Penicillins Allergy (Verified 02/22/18 12:55) pork derived (porcine) Allergy (Verified 02/25/18 01:52) propoxyphene Allergy (Verified 02/25/18 01:52) Sulfa (Sulfonamide Antibiotics) Allergy (Verified 02/22/18 12:55) Past Medical History - Social History Smoking Status: Never Smoker Chew tobacco use (# tins/day): No Drug Abuse: None Family History: Reviewed & Not Pertinent Patient has suicidal ideation: No Patient has homicidal ideation: No - Past Medical History Cardiac Medical History: Reports: Hx Congestive Heart Failure, Hx Hypercholesterolemia, Hx Hypertension Pulmonary Medical History: Reports: Hx COPD Endocrine Medical History: Reports: Hx Diabetes Mellitus Type 2 Renal/ Medical History: Denies: Hx Peritoneal Dialysis GI Medical History: Reports: Hx Gastroesophageal Reflux Disease Psychiatric Medical History: Reports: Hx Depression Past Surgical History: Reports: Hx Gynecologic Surgery, Hx Kidney (Renal S urgery), Hx Orthopedic Surgery, Hx Urinary Tract Surgery <SHANE KAT - Last Filed: 04/26/18 23:38> - Vital signs Vitals: Temp Resp Pulse Ox 98.7 F 14 99 04/26/18 22:34 04/26/18 22:34 04/26/18 22:34 Course - Laboratory Result Diagrams: 04/26/18 22:25 04/26/18 22:25 <SHANE KAT - Last Filed: 04/26/18 23:38> - Laboratory Result Diagrams: 04/26/18 22:25 04/26/18 22:25 <ESPERANZA CAMARGO - Last Filed: 04/27/18 01:07> - Vital Signs Vital signs: Temp Pulse Resp BP Pulse Ox 98.7 F 14 99 04/26/18 22:34 04/26/18 22:34 04/26/18 22:34 - Laboratory Laboratory results interpreted by me: 04/26/18 04/26/18 04/26/18 22:25 22:25 22:25 Hgb 11.7 L Hct 35.4 L MCV 79 L MCH 26.0 L RDW 17.1 H Glucose 115 H Lactic Acid 3.0 H Urine Protein Urine Nitrite Ur Leukocyte Esterase Urine Ascorbic Acid 04/27/18 00:10 Hgb Hct MCV MCH RDW Glucose Lactic Acid Urine Protein 30 H Urine Nitrite POSITIVE H Ur Leukocyte Esterase LARGE H Urine Ascorbic Acid 40 H Discharge <SHANE KAT - Last Filed: 04/26/18 23:38> <ESPERANZA CAMARGO - Last Filed: 04/27/18 01:07> - Discharge Referrals: MERCY ENCINAS [employer] [Primary Care Provider] - Follow up as needed
[2018-04-27 00:48] LABS: APPEARANCE,URINE CLOUDY; BILIRUBIN,URINE NEGATIVE (NEGATIVE); CALCIUM OXALATE CRYSTALS,URINE FEW /HPF; COLOR,URINE YELLOW; GLUCOSE, URINE NEGATIVE (NEGATIVE); KETONES,URINE NEGATIVE (NEGATIVE); LEUKOCYTE ESTERASE,URINE LARGE (NEGATIVE); NITRITE,URINE POSITIVE (NEGATIVE); PROTEIN,URINE 30 mg/dL (NEGATIVE); URINE SPECIFIC GRAVITY 1.016; UROBILINOGEN,URINE NEGATIVE mg/dL (<2.0)
[2018-04-27] MEDS ORDERED: ONDANSETRON HCL INJ/PF 4 MG/2 ML SDV IV ONE (01:05)
[2018-04-27] MEDS ORDERED: NORMAL SALINE 1000 ML 1,000 ML IV ONE ×2 (01:06→05:19)
--- NOTE | 2018-04-27 01:38 | ER Document Report ---
ED General - General Chief Complaint: Fever Stated Complaint: FEVER,NAUSEA,DIARRHEA Time Seen by Provider: 04/26/18 23:38 Notes: Patient is a 52-year-old female who presents the emergency department with a chief complaint of nausea and vomiting. She has had her nausea for the past 3 days and she vomited today. She is states that she has had a slight temperature at home. She has an indwelling Sanchez catheter that it has been in for the past 56 days. Reports drainage from the area. There is a foul odor from the area. She has a history of cerebral palsy, COPD, asthma, and diabetes. She also states she has had some diarrhea. Last year she was admitted for urosepsis at [facility]. She states that she was placed on doxycycline IV. TRAVEL OUTSIDE OF THE [place] IN LAST 30 DAYS: No - Related Data Allergies/Adverse Reactions: acetaminophen [From Darvocet-N] Allergy (Verified 04/27/18 08:25) albuterol Allergy (Verified 04/27/18 08:25) azithromycin [From Zithromax] Allergy (Verified 04/27/18 08:25) ciprofloxacin [From Cipro] Allergy (Verified 04/27/18 08:25) coconut Allergy (Verified 04/27/18 08:25) latex Allergy (Verified 04/27/18 08:25) magnesium Allergy (Verified 04/27/18 08:25) nitrofurantoin Allergy (Verified 04/27/18 08:25) Penicillins Allergy (Verified 04/27/18 08:25) pork derived (porcine) Allergy (Verified 04/27/18 08:25) propoxyphene Allergy (Verified 04/27/18 08:25) Sulfa (Sulfonamide Antibiotics) Allergy (Verified 04/27/18 08:25) Past Medical History - Social History Smoking Status: Never Smoker Chew tobacco use (# tins/day): No Drug Abuse: None Family History: Reviewed & Not Pertinent Patient has suicidal ideation: No Patient has homicidal ideation: No - Past Medical History Cardiac Medical History: Reports: Hx Congestive Heart Failure, Hx Hypercholesterolemia, Hx Hypertension Pulmonary Medical History: Reports: Hx COPD Endocrine Medical History: Reports: Hx Diabetes Mellitus Type 2 Renal/ Medical History: Denies: Hx Peritoneal Dialysis GI Medical History: Reports: Hx Gastroesophageal Reflux Disease Psychiatric Medical History: Reports: Hx Depression Past Surgical History: Reports: Hx Gynecologic Surgery, Hx Kidney (Renal Surgery), Hx Orthopedic Surgery, Hx Urinary Tract Surgery Physical Exam - Vital signs Vitals: Temp Resp Pulse Ox 98.7 F 14 99 04/26/18 22:34 04/26/18 22:34 04/26/18 22:34 - Notes Notes: PHYSICAL EXAMINATION: GENERAL: Appears well, healthy, well-nourished, no acute distress. HEAD: Normocephalic, atraumatic. EYES: PERRL, conjunctiva normal, all extraocular movements intact, sclera nonicteric ENT: Dry mucous membranes. NECK: Supple, no noticeable swelling, redness, rash. Normal range of motion. LUNGS: Equal breath sounds bilaterally and clear to auscultation. No wheezes rales or rhonchi. CARDIOVASCULAR: S1-S2, regular rate, regular rhythm. Radial pulses 2+, normal. ABDOMEN: Normoactive bowel sounds. Soft, nontender, no guarding, no rebound tenderness, and no masses palpated. EXTREMITIES: Normal strength and range of motion, no pitting or edema. No cyanosis. NEUROLOGICAL: Unable to move lower extremities due to cerebral palsy. Limited range of motion upper extremities. PSYCH: Normal mood, normal affect. SKIN: Warm, very dry. No rash, lesions, ulcerations noted. Normal skin turgor. : Suprapubic catheter noted with purulence in urine. Course - Re-evaluation Re-evalutation: 04/27/18 03:30 Patient's chemistries are unremarkable at this time. Her hematology is unremarkable, but has a she is mildly anemic, but no significant change from earlier this year her blood gas is unremarkable. I am concerned because her lactic acid is 3.0 I am concerned that the patient has started a possible urosepsis. 04/27/18 04:00 I changed the patient's suprapubic catheter. She tolerated the procedure well. Her second lactic acid dropped to 2.2, I will give her another liter of fluids to see if she feels better. 04/27/18 05:54 Patient is still receiving her doxycycline and she states that she has some nausea. She will receive some Phenergan. 04/27/18 08:[address] Barrios and the patient will be admitted to the hospital se rvice for IV fluids and antibiotics. - Vital Signs Vital signs: Temp Pulse Resp BP Pulse Ox 98.2 F 77 20 106/69 95 04/28/18 07:58 04/28/18 07:58 04/28/18 07:58 04/28/18 07:58 04/28/18 07:58 - Laboratory Result Diagrams: 04/28/18 07:15 04/28/18 07:15 Laboratory results interpreted by me: 04/26/18 04/26/18 04/26/18 22:25 22:25 22:25 Hgb 11.7 L Hct 35.4 L MCV 79 L MCH 26.0 L RDW 17.1 H Glucose 115 H Lactic Acid 3.0 H Urine Protein Urine Nitrite Ur Leukocyte Esterase Urine Ascorbic Acid 04/27/18 04/27/18 00:10 02:34 Hgb Hct MCV MCH RDW Glucose Lactic Acid 2.2 H Urine Protein 30 H Urine Nitrite POSITIVE H Ur Leukocyte Esterase LARGE H Urine Ascorbic Acid 40 H Discharge - Discharge Clinical Impression: Lactic acidosis Urinary tract infection Qualifiers: Urinary tract infection type: catheter-associated UTI Indwelling urinary catheter type: indwelling urethral catheter Encounter type: initial encounter Qualified Code(s): T83.511A - Infection and inflammatory reaction due to indwelling urethral catheter, initial encounter Condition: Stable Disposition: ADMITTED INPATIENT Admitting Provider: Hospitalist Unit Admitted: [facility]
[2018-04-27] MEDS ORDERED: DOXYCYCLINE HYCLATE INJ 100 MG VIAL IV ONE (02:42)
[2018-04-27] MEDS ORDERED: LIDOCAINE 2% URO-JET 5 ML KIT MM ONE (03:07)
[2018-04-27] MEDS ORDERED: PROMETHAZINE HCL INJ 25 MG/1 ML VIAL IV ONE (05:55)
--- NOTE | 2018-04-27 07:51 | EKG REPORT ---
SEVERITY:- NORMAL ECG - SINUS RHYTHM : Confirmed by: Jarvis Murillo MD 27-Apr-2018 07:49:58
[2018-04-27] MEDS ORDERED: IPRATROPIUM/ALBUTEROL 0.5-2.5 MG/3 ML AMPUL NEB PRN (09:14)
--- NOTE | 2018-04-27 09:14 | PDOC H&P ---
History of Present Illness Admission Date/PCP: 04/27/18 08:55 FANG CASTREJON History of Present Illness: ARABELLA HOWELL is a 52 year old female patient with past medical hi story of neurogenic bladder and chronic suprapubic Sanchez catheter placement, bronchial asthma, diabetes COPD and cerebral palsy presented with chief complaint of nausea and vomiting of 3 days duration. Her indwelling suprapubic catheter has been in for the past 56 days. Is supposed to be changed every month. Reportedly patient last year was admitted for urosepsis at [facility]. Past Medical History Cardiac Medical History: Reports: Congestive Heart Failure, Hyperlipidema, Hypertension Pulmonary Medical History: Reports: Chronic Obstructive Pulmonary Disease (COPD) Endocrine Medical History: Reports: Diabetes Mellitus Type 2 GI Medical History: Reports: Gastroesophageal Reflux Disease Psychiatric Medical History: Reports: Depression Past Surgical History Past Surgical History: Reports: Orthopedic Surgery Social History Smoking Status: Never Smoker - Advance Directive Resuscitation Status: Full Code Family History Family History: Reviewed & Not Pertinent Parental Family History Reviewed: Yes Children Family History Reviewed: Yes Sibling(s) Family History Reviewed.: Yes Medication/Allergy Allergies/Adverse Reactions: acetaminophen [From Darvocet-N] Allergy (Verified 04/27/18 08:25) albuterol Allergy (Verified 04/27/18 08:25) azithromycin [From Zithromax] Allergy (Verified 04/27/18 08:25) ciprofloxacin [From Cipro] Allergy (Verified 04/27/18 08:25) coconut Allergy (Verified 04/27/18 08:25) latex Allergy (Verified 04/27/18 08:25) magnesium Allergy (Verified 04/27/18 08:25) nitrofurantoin Allergy (Verified 04/27/18 08:25) oxycodone [From Percocet] Allergy (Verified 04/27/18 08:25) Penicillins Allergy (Verified 04/27/18 08:25) pork derived (porcine) Allergy (Verified 04/27/18 08:25) propoxyphene Allergy (Verified 04/27/18 08:25) Sulfa (Sulfonamide Antibiotics) Allergy (Verified 04/27/18 08:25) Review of Systems Constitutional: ABSENT: chills, fever(s), headache(s), weight gain, weight loss Eyes: ABSENT: visual disturbances Ears: ABSENT: hearing changes Cardiovascular: ABSENT: chest pain, dyspnea on exertion, edema, orthropnea, palpitations Respiratory: ABSENT: cough, hemoptysis Gastrointestinal: PRESENT: nausea, vomiting Genitourinary: ABSENT: dysuria, hematuria Musculoskeletal: ABSENT: joint swelling Integumentary: ABSENT: rash, wounds Neurological: ABSENT: abnormal gait, abnormal speech, confusion, dizziness, focal weakness, syncope Psychiatric: ABSENT: anxiety, depression, homidical ideation, suicidal ideation Endocrine: ABSENT: cold intolerance, heat intolerance, polydipsia, polyuria Hematologic/Lymphatic: ABSENT: easy bleeding, easy bruising Physical Exam Vital Signs: Temp Pulse Resp BP Pulse Ox 97.9 F 14 137/82 H 99 04/27/18 08:26 04/27/18 08:31 04/27/18 08:01 04/27/18 08:31 Intake & Output 04/26/18 04/27/18 04/28/18 06:59 06:59 06:59 Intake Total 1000 1000 Balance 1000 1000 Weight 83.915 kg General appearance: PRESENT: mild distress Eye exam: PRESENT: conjunctiva pink Teeth exam: PRESENT: dental caries Respiratory exam: PRESENT: clear to auscultation ankit. ABSENT: rales, rhonchi, wheezes Cardiovascular exam: PRESENT: RRR. ABSENT: diastolic murmur, rubs, systolic murmur GI/Abdominal exam: PRESENT: normal bowel sounds, soft. ABSENT: distended, guarding, mass, organolmegaly, rebound, tenderness Gentrourinary exam: PRESENT: indwelling catheter Results Laboratory Results: 04/26/18 22:25 04/26/18 22:25 04/26/18 04/26/18 04/26/18 22:25 22:25 22:25 WBC 8.4 RBC 4.49 Hgb 11.7 L Hct 35.4 L MCV 79 L MCH 26.0 L MCHC 33.0 RDW 17.1 H Plt Count 360 Seg Neutrophils % 64.0 Lymphocytes % 26.3 Monocytes % 6.8 Eosinophils % 2.3 Basophils % 0.6 Absolute Neutrophils 5.4 Absolute Lymphocytes 2.2 Absolute Monocytes 0.6 Absolute Eosinophils 0.2 Absolute Basophils 0.1 VBG pH VBG pCO2 VBG HCO3 VBG Base Excess Sodium 140.9 Potassium 4.3 Chloride 102 Carbon Dioxide 27 Anion Gap 12 BUN 15 Creatinine 0.53 Est GFR ( Amer) > 60 Est GFR (Non-Af Amer) > 60 Glucose 115 H Lactic Acid 3.0 H Calcium 10.2 Total Bilirubin 0.4 AST 21 ALT 20 Alkaline Phosphatase 78 Total Protein 7.6 Albumin 4.5 Urine Color Urine Appearance Urine pH Ur Specific [place] Urine Protein Urine Glucose (UA) Urine Ketones Urine Blood Urine Nitrite Ur Leukocyte Esterase Urine WBC (Auto) Urine RBC (Auto) 04/26/18 04/27/18 04/27/18 22:25 00:10 02:34 WBC RBC Hgb Hct MCV MCH MCHC RDW Plt Count Seg Neutrophils % Lymphocytes % Monocytes % Eosinophils % Basophils % Absolute Neutrophils Absolute Lymphocytes Absolute Monocytes Absolute Eosinophils Absolute Basophils VBG pH 7.42 VBG pCO2 39.3 VBG HCO3 24.7 VBG Base Excess 0.3 Sodium Potassium Chloride Carbon Dioxide Anion Gap BUN Creatinine Est GFR ( Amer) Est GFR (Non-Af Amer) Glucose Lactic Acid 2.2 H Calcium Total Bilirubin AST ALT Alkaline Phosphatase Total Protein Albumin Urine Color YELLOW Urine Appearance CLOUDY Urine pH 6.0 Ur Specific [place] 1.016 Urine Protein 30 H Urine Glucose (UA) NEGATIVE Urine Ketones NEGATIVE Urine Blood NEGATIVE Urine Nitrite POSITIVE H Ur Leukocyte Esterase LARGE H Urine WBC (Auto) >182 Urine RBC (Auto) 21 Impressions: Chest X-Ray 04/26/18 21:47 IMPRESSION: No acute disease. Assessment & Plan - Diagnosis (1) Complicated UTI (urinary tract infection) Is this a current diagnosis for this admission?: Yes Plan: I will started empirically on IV ceftriaxone and I will escalate her antibiotics based on her clinical response and urine culture and blood culture results. (2) Type 2 diabetes mellitus Is this a current diagnosis for this admission?: Yes Plan: I will continue her home medication, put her on sliding scale and request hemoglobin A1c to evaluate the status of her diabetes. (3) COPD (chronic obstructive pulmonary disease) Qualifiers: Emphysema type: unspecified Is this a current diagnosis for this admission?: Yes Plan: And admits secondhand smoking. Currently she is not in distress but we will put her on as needed bronchodilators. (4) Cerebral palsy Is this a current diagnosis for this admission?: Yes Plan: Stable follow-up with her primary neurologist and continue her home medication for her cerebral palsy. (5) Hypertension Qualifiers: Hypertension type: essential hypertension Qualified Code(s): I10 - Essential (primary) hypertension Is this a current diagnosis for this admission?: Yes Plan: Continue her home medication (6) Hyperlipidemia Qualifiers: Hyperlipidemia type: unspecified Qualified Code(s): E78.5 - Hyperlipidemia, unspecified Is this a current diagnosis for this admission?: Yes Plan: Continue her home medication - Inpatient Certification Medical Necessity: Need Close Monitoring Due to Risk of Patient Decompensation, Need for IV Antibiotics
[2018-04-27] MEDS: ENOXAPARIN SODIUM INJ 40 MG/0.4 ML DISP.SYRIN SUBCUT SCH (10:52)
[2018-04-27] MEDS: ERTAPENEM SODIUM 1 GM in NORMAL SALINE 50 ML IV SCH (12:18)
[2018-04-27] MEDS ORDERED: ARFORMOTEROL TARTRATE IH PRN (14:29)
[2018-04-27] MEDS ORDERED: [UNRECOGNIZED DRUG - OTHER] IH PRN (14:29)
[2018-04-27] MEDS ORDERED: (PENDING PHARMACY ID) (Oxybutynin Chloride [Oxybutynin Chloride Er] 15 MG) PO SCH (14:45)
[2018-04-27] MEDS ORDERED: (PENDING PHARMACY ID) (Fexofenadine Hcl [Allegra] 60 MG) PO SCH (14:45)
[2018-04-27] MEDS ORDERED: GABAPENTIN 100 MG CAPSULE PO SCH (15:00)
[2018-04-27] MEDS: LISINOPRIL 5 MG TABLET PO SCH (15:44)
[2018-04-27] MEDS: OXYCODONE-ACETAMINOPHEN 5-325 MG TABLET PO PRN (15:44)
[2018-04-27] MEDS: BUPROPION HCL 75 MG TABLET PO SCH (15:45)
[2018-04-27] MEDS: GABAPENTIN 300 MG CAPSULE PO SCH ×2 (15:45→21:46)
[2018-04-27] MEDS: ONDANSETRON HCL INJ/PF 4 MG/2 ML SDV IV PRN (15:47)
[2018-04-27] MEDS: METFORMIN HCL 500 MG TABLET PO SCH (17:52)
[2018-04-27] MEDS: INSULIN LISPRO 100 UNIT/ML 3 ML VIAL SUBCUT SCH (17:53)
[2018-04-27] MEDS: METHIMAZOLE 5 MG TABLET PO SCH (17:53)
[2018-04-27] MEDS: DOCUSATE SODIUM 100 MG CAPSULE PO SCH (17:54)
[2018-04-27] MEDS ORDERED: INSULIN ASPART 7 UNIT SQ SCH (18:00)
[2018-04-27] MEDS ORDERED: (PENDING PHARMACY ID) (Metformin Hcl [Metformin Hcl Er] 1,500 MG) PO SCH (18:00)
[2018-04-27] MEDS ORDERED: (PENDING PHARMACY ID) (Cyclobenzaprine Hcl [Flexeril 5 Mg Tablet] 5 MG) PO SCH (18:00)
[2018-04-27] MEDS: CYCLOBENZAPRINE HCL 10 MG TABLET PO SCH (21:47)
[2018-04-27] MEDS: OXYBUTYNIN CHLORIDE 5 MG TABLET PO SCH (21:54)
[2018-04-27] MEDS: INSULIN GLARGINE,HUM.REC.ANLOG 300 UNIT/3 ML INSULN.PEN SUBCUT SCH (21:54)
[2018-04-28] MEDS: OXYBUTYNIN CHLORIDE 5 MG TABLET PO SCH ×3 (05:40→21:26)
[2018-04-28] MEDS: GABAPENTIN 300 MG CAPSULE PO SCH ×3 (05:40→21:25)
[2018-04-28] MEDS: PANTOPRAZOLE SODIUM 20 MG TABLET.DR PO SCH (05:40)
[2018-04-28 07:41] LABS: ABSOLUTE EOSINOPHILS # (AUTO) 0.2 10^3/uL (0.0-0.6); ABSOLUTE LYMPHOCYTES (AUTO) 1.6 10^3/uL (0.5-4.7); ABSOLUTE MONOCYTES (AUTO) 0.5 10^3/uL (0.1-1.4); ABSOLUTE NEUT (AUTO) 3.3 10^3/uL (1.7-8.2); BASOPHILS % (AUTO) 0.3 % (0-2); EOSINOPHILS % (AUTO) 2.8 % (0-6); HEMOGLOBIN 10.4 g/dL (12.0-15.5); LYMPHOCYTES % (AUTO) 28.8 % (13-45); MEAN CORPUSCULAR HEMOGLOBIN 25.7 pg (27.0-33.4); MEAN CORPUSCULAR HGB CONC 32.5 g/dL (32.0-36.0); MEAN CORPUSCULAR VOLUME 79 fl (80-97); MONOCYTES % (AUTO) 8.5 % (3-13); PLATELET COUNT 218 10^3/uL (150-450); RED BLOOD COUNT 4.05 10^6/uL (3.72-5.28); RED CELL DISTRIBUTION WIDTH 16.8 % (11.5-14.0); SEGMENTED NEUTROPHILS % (AUTO) 59.6 % (42-78); TOTAL CELLS COUNTED % (AUTO) 100 %; WHITE BLOOD COUNT 5.6 10^3/uL (4.0-10.5)
[2018-04-28 07:59] LABS: ANION GAP 8 (5-19); BLOOD UREA NITROGEN 13 mg/dL (7-20); CALCIUM 9.7 mg/dL (8.4-10.2); CARBON DIOXIDE 28 mmol/L (22-30); CHLORIDE 107 mmol/L (98-107); GLUCOSE 94 mg/dL (75-110); POTASSIUM 3.8 mmol/L (3.6-5.0); SODIUM 142.8 mmol/L (137-145)
[2018-04-28] MEDS ORDERED: INSULIN ASPART 8 UNIT SQ SCH ×2 (08:00→12:00)
[2018-04-28] MEDS: DOCUSATE SODIUM 100 MG CAPSULE PO SCH ×2 (10:06→17:31)
--- NOTE | 2018-04-28 10:33 | PROGRESS NOTE E ---
Progress Note NAME: ARABELLA HOWELL : 1965 AGE: 52Y DATE: 04/28/2018 ROOM: 435 SUBJECTIVE: The patient is a 52-year-old female who had a past medical history of neurogenic bladder, chronic suprapubic catheter, asthma, COPD. She was admitted with complicated UTI, started on IV antibiotics. Feeling better today. OBJECTIVE: GENERAL: The patient is lying in bed comfortably. Not in distress. VITAL SIGNS: Temperature 98.2, heart rate 77, respirations 20, blood pressure 106/69. HEENT: Normocephalic/atraumatic. Pupils equal, round, and reactive to light and accommodation bilaterally. Ears: Tympanic membranes intact bilaterally. No discharge from ears, no discharge from the nose. NECK: Supple. No JVD, no thyromegaly, no lymphadenopathy. CARDIOVASCULAR: Normal S1, S2. Regular rate and rhythm. No murmur, no gallop. RESPIRATORY: Lungs clear. ABDOMEN: Soft. MUSCULOSKELETAL: No edema. LABORATORY: White blood count 5.6, hemoglobin 10.4, creatinine 0.5. ASSESSMENT AND PLAN: 1. COMPLICATED URINARY TRACT INFECTION. Continue antibiotics. The patient is on ertapenem IV. 2. DIABETES MELLITUS TYPE 2. Controlled. On metformin. 3. HYPERTENSION. Controlled on lisinopril. 4. NEUROGENIC BLADDER. Had suprapubic catheter. MEDICAL NECESSITY: On IV antibiotics, ertapenem. Time spent 25 minutes. DICTATING PHYSICIAN: AVRIL PAGE M.D. [id number] PHY#: [id number] ID: [id number] JOB#: [id number] ACCT: [id number] cc: >
[2018-04-28] MEDS: ATORVASTATIN CALCIUM 80 MG TABLET PO SCH (10:37)
[2018-04-28] MEDS: CYCLOBENZAPRINE HCL 10 MG TABLET PO SCH ×2 (10:37→21:25)
[2018-04-28] MEDS: LISINOPRIL 5 MG TABLET PO SCH (10:37)
[2018-04-28] MEDS: LORATADINE 10 MG TABLET PO SCH (10:37)
[2018-04-28] MEDS: METFORMIN HCL 500 MG TABLET PO SCH ×3 (10:38→17:34)
[2018-04-28] MEDS: INSULIN LISPRO 100 UNIT/ML 3 ML VIAL SUBCUT SCH ×3 (10:38→17:35)
[2018-04-28] MEDS: ERTAPENEM SODIUM 1 GM in NORMAL SALINE 50 ML IV SCH (10:39)
[2018-04-28 10:44] LABS: ABSOLUTE EOSINOPHILS # (AUTO) 0.1 10^3/uL (0.0-0.6); ABSOLUTE LYMPHOCYTES (AUTO) 1.4 10^3/uL (0.5-4.7); ABSOLUTE MONOCYTES (AUTO) 0.4 10^3/uL (0.1-1.4); ABSOLUTE NEUT (AUTO) 3.6 10^3/uL (1.7-8.2); BASOPHILS % (AUTO) 0.7 % (0-2); EOSINOPHILS % (AUTO) 2.3 % (0-6); HEMATOCRIT 33.3 % (36.0-47.0); HEMOGLOBIN 10.9 g/dL (12.0-15.5); LYMPHOCYTES % (AUTO) 24.8 % (13-45); MEAN CORPUSCULAR HEMOGLOBIN 25.7 pg (27.0-33.4); MEAN CORPUSCULAR HGB CONC 32.6 g/dL (32.0-36.0); MEAN CORPUSCULAR VOLUME 79 fl (80-97); MONOCYTES % (AUTO) 7.3 % (3-13); PLATELET COUNT 225 10^3/uL (150-450); RED BLOOD COUNT 4.22 10^6/uL (3.72-5.28); RED CELL DISTRIBUTION WIDTH 17.4 % (11.5-14.0); SEGMENTED NEUTROPHILS % (AUTO) 64.9 % (42-78); TOTAL CELLS COUNTED % (AUTO) 100 %; WHITE BLOOD COUNT 5.6 10^3/uL (4.0-10.5)
[2018-04-28] MEDS: METHIMAZOLE 5 MG TABLET PO SCH ×2 (10:53→17:34)
[2018-04-28] MEDS: BUPROPION HCL 75 MG TABLET PO SCH (10:53)
[2018-04-28] MEDS: ENOXAPARIN SODIUM INJ 40 MG/0.4 ML DISP.SYRIN SUBCUT SCH (10:53)
[2018-04-28 21:16] LABS: ALBUMIN 3.9 g/dL (3.5-5.0); ANION GAP 13 (5-19); BLOOD UREA NITROGEN 15 mg/dL (7-20); CALCIUM 10.1 mg/dL (8.4-10.2); CARBON DIOXIDE 23 mmol/L (22-30); CHLORIDE 106 mmol/L (98-107); GLUCOSE 97 mg/dL (75-110); PHOSPHORUS 4.4 mg/dL (2.5-4.5); POTASSIUM 4.3 mmol/L (3.6-5.0); SODIUM 142.2 mmol/L (137-145)
[2018-04-28] MEDS: INSULIN GLARGINE,HUM.REC.ANLOG 300 UNIT/3 ML INSULN.PEN SUBCUT SCH (21:26)
[2018-04-28] MEDS: ONDANSETRON HCL INJ/PF 4 MG/2 ML SDV IV PRN (21:26)
[2018-04-28] MEDS: OXYCODONE-ACETAMINOPHEN 5-325 MG TABLET PO PRN (21:38)
[2018-04-29] MEDS: GABAPENTIN 300 MG CAPSULE PO SCH ×3 (05:38→21:34)
[2018-04-29] MEDS: OXYBUTYNIN CHLORIDE 5 MG TABLET PO SCH ×3 (05:38→21:34)
[2018-04-29] MEDS: PANTOPRAZOLE SODIUM 20 MG TABLET.DR PO SCH (05:38)
[2018-04-29] MEDS: OXYCODONE-ACETAMINOPHEN 5-325 MG TABLET PO PRN (05:48)
[2018-04-29] MEDS: LISINOPRIL 5 MG TABLET PO SCH (11:07)
[2018-04-29] MEDS: ATORVASTATIN CALCIUM 80 MG TABLET PO SCH (11:07)
[2018-04-29] MEDS: CYCLOBENZAPRINE HCL 10 MG TABLET PO SCH ×2 (11:08→21:34)
[2018-04-29] MEDS: LORATADINE 10 MG TABLET PO SCH (11:09)
[2018-04-29] MEDS: DOCUSATE SODIUM 100 MG CAPSULE PO SCH ×2 (11:09→17:16)
[2018-04-29] MEDS: BUPROPION HCL 75 MG TABLET PO SCH (11:10)
[2018-04-29] MEDS: METFORMIN HCL 500 MG TABLET PO SCH ×3 (11:10→16:32)
[2018-04-29] MEDS: METHIMAZOLE 5 MG TABLET PO SCH ×2 (11:11→17:19)
[2018-04-29] MEDS: INSULIN LISPRO 100 UNIT/ML 3 ML VIAL SUBCUT SCH ×3 (11:11→17:21)
[2018-04-29] MEDS: ERTAPENEM SODIUM 1 GM in NORMAL SALINE 50 ML IV SCH (12:11)
[2018-04-29] MEDS: ENOXAPARIN SODIUM INJ 40 MG/0.4 ML DISP.SYRIN SUBCUT SCH (13:43)
--- NOTE | 2018-04-29 15:04 | RADIOLOGY REPORT (SQ) ---
EXAM DESCRIPTION: CT ABD/PELVIS WITH IV ONLY COMPLETED DATE/TIME: 04/29/2018 2:38 pm REASON FOR STUDY: abdominal pain COMPARISON: 02/22/2018 TECHNIQUE: CT scan of the abdomen and pelvis performed using helical scanning technique with dynamic intravenous contrast injection. No oral contrast. Images reviewed with lung, soft tissue, and bone windows. Reconstructed coronal and sagittal MPR images reviewed. Delayed images for evaluation of the urinary system also acquired. All images stored on PACS. All CT scanners at this facility use dose modulation, iterative reconstruction, and/or weight based d osing when appropriate to reduce radiation dose to as low as reasonably achievable (ALARA). [facility]: Dose Right [facility]: CareDose [facility]: Dose Right [facility]: Teradose 4D [facility]: [employer] CONTRAST TYPE AND DOSE: contrast/concentration: Isovue 350.00 mg/ml; Total Contrast Delivered: 88.0 ml; Total Saline Delivered: 70.0 ml 80 mL IV of Omnipaque 350- low osmolar. RENAL FUNCTION: BUN 15 creatinine 0.55 RADIATION DOSE: CT Rad equipment meets quality standard of care and radiation dose reduction techniq ues were employed. CTDIvol: 16.6 - 19.8 mGy. DLP: 2056 mGy-cm.. LIMITATIONS: None. FINDINGS: LOWER CHEST: No significant findings. No nodules or infiltrates. LIVER: Normal size. No masses. No dilated ducts. SPLEEN: Normal size. No focal lesions. PANCREAS: No masses. No significant calcifications. No adjacent inflammation or peripancreatic fluid collections. Pancreatic duct not dilated. GALLBLADDER: Surgically absent. ADRENAL GLANDS: No significant masses or asymmetry. RIGHT KIDNEY AND URETER: Lobulated appearance of the right kidney. No solid masses. No significant calcifications. Mild right hydronephrosis. Interval placement of a suprapubic catheter of the uri nary bladder with the tip terminating in the distal right ureter. Unchanged nonobstructing calculi w ithin the calices of the right kidney. LEFT KIDNEY AND URETER: Lobulated appearance of the left kidney. Cortical scarring of the superolat eral left kidney which may be sequelae of prior infection. No solid masses. No significant calcifi cations. No hydronephrosis or hydroureter. AORTA AND VESSELS: No aneurysm. No dissection. Mild scattered calcified plaque. RETROPERITONEUM: No retroperitoneal adenopathy, hemorrhage or masses. BOWEL AND PERITONEAL CAVITY: No dilated loops of bowel. Few scattered diverticula of the colon. No inflammatory changes to suggest diverticulitis. Mild stool burden, improved from prior No intraperi toneal free fluid or free air. No peritoneal mass. APPENDIX: Not visualized. PELVIS: No mass. No free fluid. Air within the nondependent portion of the urinary bladder, seconda ry to suprapubic catheter. ABDOMINAL WALL: No masses. No hernias. BONES: No significant or acute findings. OTHER: No other significant finding. IMPRESSION: 1. Interval placement of a suprapubic catheter into the urinary bladder with the distal tip terminati ng in the distal right ureter resulting in mild right hydronephrosis. 2. Mild stool burden, improved from prior. 3. Additional findings, similar to prior. TECHNICAL DOCUMENTATION: JOB ID: [id number] Quality ID # [id number]: Final reports with documentation of one or more dose reduction techniques (e.g., Au tomated exposure control, adjustment of the mA and/or kV according to patient size, use of iterative reconstruction technique) 2010 [employer]- All Rights Reserved Reading location - IP/workstation name: [email or web address]
[2018-04-29] MEDS ORDERED: MAGNESIUM HYDROXIDE SUSP 30 ML UDCUP PO PRN (18:02)
--- NOTE | 2018-04-29 19:18 | PROGRESS NOTE E ---
Progress Note NAME: ARABELLA HOWELL : 1965 AGE: 52Y DATE: 04/29/2018 ROOM: 435 SUBJECTIVE: The patient is a 52-year-old female with a past medical history significant for neurogenic bladder, chronic suprapubic catheter, bronchial asthma, diabetes, COPD. Chief complaint is nausea and vomiting for 3 days' duration, abdominal pain. Had some diarrhea. She was found to have urosepsis exacerbation. Was started on ertapenem on the day of admission, on the . She received antibiotic on the . Today, #4 day of antibiotics. The culture of urinalysis came back klebsiella, sensitive to Cipro. The patient is still complaining of nausea, abdominal pain and constipation. OBJECTIVE: GENERAL: Patient lying in bed, comfortable, not in distress. VITAL SIGNS: Blood pressure is 104/74, temperature 97.7, heart rate 84, respiratory rate 15. HEENT: Head normocephalic, atraumatic. Pupils round, reactive to light and accommodation bilaterally. Extraocular muscles intact. Ears: Tympanic membranes intact bilaterally. No discharge from the ears. No discharge from the nose. NECK: Supple. No increased JVD. No thyromegaly, no lymphadenopathy. CARDIOVASCULAR: Normal S1, S2. Regular rate. No murmur, no gallop. RESPIRATORY: Lungs clear. ABDOMEN: Soft. MUSCULOSKELETAL: No edema. NEUROLOGIC: Awake, alert. SKIN: No rash. LABORATORY DATA: White blood count 5.6, hemoglobin 11, hematocrit is 33. Sodium 142, potassium 4.3, creatinine 0.5. ASSESSMENT: 1. COMPLICATED UTI/UROSEPSIS. Urine culture grew klebsiella. Continue ertapenem, observation on 4 days of IV antibiotics. Will continue antibiotic IV for 1 day. Tomorrow also he will receive the last dose of ertapenem and then will switch her to ciprofloxacin 500 twice a day. 2. CHRONIC SUPRAPUBIC CATHETER, SECONDARY TO NEUROGENIC BLADDER. 3. NEUROGENIC BLADDER. 4. HYPERTENSION, CONTROLLED ON LISINOPRIL. 5. NAUSEA, VOMITING. The patient is still nauseated and she had constipation and epigastric pain. PLAN: Will continue IV antibiotics. I will order CT scan of abdomen as the patient is still continuing to have abdominal pain, to rule out any intraabdominal pathology. MEDICAL NECESSITY: IV antibiotic. DICTATING PHYSICIAN: AVRIL PAGE M.D. [id number] PHY#: [id number] ID: [id number] JOB#: [id number] ACCT: [id number] cc: >
[2018-04-29] MEDS: INSULIN GLARGINE,HUM.REC.ANLOG 300 UNIT/3 ML INSULN.PEN SUBCUT SCH (21:34)
[2018-04-30 06:24] LABS: ABSOLUTE BASOPHILS # (AUTO) 0.1 10^3/uL (0.0-0.2); ABSOLUTE EOSINOPHILS # (AUTO) 0.2 10^3/uL (0.0-0.6); ABSOLUTE LYMPHOCYTES (AUTO) 1.5 10^3/uL (0.5-4.7); ABSOLUTE MONOCYTES (AUTO) 0.5 10^3/uL (0.1-1.4); ABSOLUTE NEUT (AUTO) 4.2 10^3/uL (1.7-8.2); BASOPHILS % (AUTO) 0.8 % (0-2); EOSINOPHILS % (AUTO) 3.3 % (0-6); HEMATOCRIT 33.7 % (36.0-47.0); HEMOGLOBIN 10.7 g/dL (12.0-15.5); LYMPHOCYTES % (AUTO) 23.3 % (13-45); MEAN CORPUSCULAR HEMOGLOBIN 25.2 pg (27.0-33.4); MEAN CORPUSCULAR HGB CONC 31.8 g/dL (32.0-36.0); MEAN CORPUSCULAR VOLUME 79 fl (80-97); MONOCYTES % (AUTO) 7.7 % (3-13); PLATELET COUNT 240 10^3/uL (150-450); RED BLOOD COUNT 4.25 10^6/uL (3.72-5.28); RED CELL DISTRIBUTION WIDTH 17.1 % (11.5-14.0); SEGMENTED NEUTROPHILS % (AUTO) 64.9 % (42-78); TOTAL CELLS COUNTED % (AUTO) 100 %; WHITE BLOOD COUNT 6.5 10^3/uL (4.0-10.5)
[2018-04-30] MEDS: OXYBUTYNIN CHLORIDE 5 MG TABLET PO SCH ×3 (06:34→21:55)
[2018-04-30] MEDS: PANTOPRAZOLE SODIUM 20 MG TABLET.DR PO SCH (06:34)
[2018-04-30] MEDS: GABAPENTIN 300 MG CAPSULE PO SCH ×3 (06:35→21:56)
[2018-04-30] MEDS: METFORMIN HCL 500 MG TABLET PO SCH ×3 (08:42→17:04)
[2018-04-30] MEDS: INSULIN LISPRO 100 UNIT/ML 3 ML VIAL SUBCUT SCH ×3 (08:42→17:05)
[2018-04-30 09:31] LABS: ALBUMIN 3.6 g/dL (3.5-5.0); ANION GAP 10 (5-19); BLOOD UREA NITROGEN 21 mg/dL (7-20); CALCIUM 9.5 mg/dL (8.4-10.2); CARBON DIOXIDE 26 mmol/L (22-30); CHLORIDE 105 mmol/L (98-107); GLUCOSE 115 mg/dL (75-110); PHOSPHORUS 4.6 mg/dL (2.5-4.5); POTASSIUM 3.9 mmol/L (3.6-5.0)
[2018-04-30] MEDS: ERTAPENEM SODIUM 1 GM in NORMAL SALINE 50 ML IV SCH (09:55)
[2018-04-30] MEDS: CYCLOBENZAPRINE HCL 10 MG TABLET PO SCH ×2 (09:56→21:56)
[2018-04-30] MEDS: ENOXAPARIN SODIUM INJ 40 MG/0.4 ML DISP.SYRIN SUBCUT SCH (09:56)
[2018-04-30] MEDS: LISINOPRIL 5 MG TABLET PO SCH (09:56)
[2018-04-30] MEDS: DOCUSATE SODIUM 100 MG CAPSULE PO SCH ×2 (09:56→17:05)
[2018-04-30] MEDS: LORATADINE 10 MG TABLET PO SCH (09:56)
[2018-04-30] MEDS: ATORVASTATIN CALCIUM 80 MG TABLET PO SCH (09:57)
[2018-04-30] MEDS: METHIMAZOLE 5 MG TABLET PO SCH ×2 (09:57→17:04)
[2018-04-30] MEDS: BUPROPION HCL 75 MG TABLET PO SCH (09:58)
--- NOTE | 2018-04-30 15:25 | PDOC PROGRESS REPORT ---
Subjective Progress Note for:: 04/30/18 Subjective:: This is a 52 year old female patient with past medical history of neurogenic bladder and chronic suprapubic catheter placement, bronchial asthma, diabetes COPD and cerebral palsy presented with chief complaint of nausea and vomiting of 3 days duration. Her indwelling suprapubic catheter has not been replaced for the past 56 days (supposedly changed monthly). She was admitted for complicated UTI. No acute event overnight. She says she feels better. No recurrence of nausea/vomiting so far. Urine culture grew Klebsiella so far, another gram negative bacilli and another gram positive bacteria. Await final culture report to determine if she needs a PICC for IV antibiotics or if she can be discharged home on oral antibiotics. Reason For Visit: COMPLICATED UTI Physical Exam Vital Signs: Temp Pulse Resp BP Pulse Ox 98.8 F 93 20 139/78 H 98 04/30/18 11:53 04/30/18 11:53 04/30/18 11:53 04/30/18 11:53 04/30/18 11:53 Intake & Output 04/29/18 04/30/18 05/01/18 06:59 06:59 06:59 Intake Total 2280 1470 50 Output Total 800 720 Balance 1480 750 50 Weight 169 lb 5.04 oz 170 lb 3.15 oz General appearance: PRESENT: no acute distress, well-developed, well-nourished Head exam: PRESENT: atraumatic, normocephalic Eye exam: PRESENT: conjunctiva pink, EOMI, PERRLA. ABSENT: scleral icterus Ear exam: PRESENT: normal external ear exam Mouth exam: PRESENT: moist, tongue midline Neck exam: ABSENT: carotid bruit, JVD, lymphadenopathy, thyromegaly Respiratory exam: PRESENT: clear to auscultation ankit. ABSENT: rales, rhonchi, wheezes Cardiovascular exam: PRESENT: RRR. ABSENT: diastolic murmur, rubs, systolic murmur Pulses: PRESENT: normal dorsalis pedis pul GI/Abdominal exam: PRESENT: normal bowel sounds, soft. ABSENT: distended, guarding, mass, organolmegaly, rebound, tenderness Rectal exam: PRESENT: deferred Neurological exam: PRESENT: alert, awake, oriented to person, oriented to place, oriented to time, oriented to situation Results Laboratory Results: 04/30/18 05:52 04/30/18 05:52 04/30/18 04/30/18 05:52 05:52 WBC 6.5 RBC 4.25 Hgb 10.7 L Hct 33.7 L MCV 79 L MCH 25.2 L MCHC 31.8 L RDW 17.1 H Plt Count 240 Seg Neutrophils % 64.9 Lymphocytes % 23.3 Monocytes % 7.7 Eosinophils % 3.3 Basophils % 0.8 Absolute Neutrophils 4.2 Absolute Lymphocytes 1.5 Absolute Monocytes 0.5 Absolute Eosinophils 0.2 Absolute Basophils 0.1 Sodium 141.0 Potassium 3.9 Chloride 105 Carbon Dioxide 26 Anion Gap 10 BUN 21 H Creatinine 0.49 L Est GFR ( Amer) > 60 Est GFR (Non-Af Amer) > 60 Glucose 115 H Calcium 9.5 Phosphorus 4.6 H Albumin 3.6 04/27/18 00:10 Suprapubic Catheter Urine Culture - Final Klebsiella Pneumoniae Enterococcus Faecalis(Group D) Providencia Stuartii Klebsiella Pneumoniae#2 Impressions: Chest X-Ray 04/26/18 21:47 IMPRESSION: No acute disease. Abdomen/Pelvis CT 04/29/18 00:00 IMPRESSION: 1. Interval placement of a suprapubic catheter into the urinary bladder with the distal tip terminating in the distal right ureter resulting in mild right hydronephrosis. 2. Mild stool burden, improved from prior. 3. Additional findings, similar to prior. Assessment & Plan - Diagnosis (1) Complicated UTI (urinary tract infection) Is this a current diagnosis for this admission?: Yes Plan: Urine culture grew Klebsiella so far, another gram negative bacilli and another gram positive bacteria. Await final culture report to determine if she needs a PICC for IV antibiotics or if she can be discharged home on oral antibiotics. Currently on Ertapenem. De-escalate pending final culture results. (2) COPD (chronic obstructive pulmonary disease) Qualifiers: Emphysema type: unspecified Is this a current diagnosis for this admission?: Yes Plan: Stable. Not in exacerbation. (3) Hypertension Qualifiers: Hypertension type: essential hypertension Qualified Code(s): I10 - Essential (primary) hypertension Is this a current diagnosis for this admission?: Yes Plan: Controlled. Continue lisinopril. (4) Type 2 diabetes mellitus Is this a current diagnosis for this admission?: Yes Plan: Sugars at goal. Continue Lantus and premeal Humalog. (5) Cerebral palsy Is this a current diagnosis for this admission?: Yes - Time Time Spent with patient: 25-34 minutes
[2018-04-30] MEDS: INSULIN GLARGINE,HUM.REC.ANLOG 300 UNIT/3 ML INSULN.PEN SUBCUT SCH (21:56)
[2018-05-01] MEDS: PANTOPRAZOLE SODIUM 20 MG TABLET.DR PO SCH (05:55)
[2018-05-01] MEDS: OXYBUTYNIN CHLORIDE 5 MG TABLET PO SCH ×2 (05:55→14:13)
[2018-05-01] MEDS: GABAPENTIN 300 MG CAPSULE PO SCH ×2 (05:55→14:12)
[2018-05-01] MEDS ORDERED: POLYETHYLENE GLYCOL 3350 POWDER 17 GM/1 PACKET PO SCH (08:00)
[2018-05-01] MEDS: METFORMIN HCL 500 MG TABLET PO SCH ×2 (08:48→12:00)
[2018-05-01] MEDS: INSULIN LISPRO 100 UNIT/ML 3 ML VIAL SUBCUT SCH ×2 (08:48→14:13)
[2018-05-01] MEDS: CYCLOBENZAPRINE HCL 10 MG TABLET PO SCH (09:12)
[2018-05-01] MEDS: DOCUSATE SODIUM 100 MG CAPSULE PO SCH (09:12)
[2018-05-01] MEDS: LORATADINE 10 MG TABLET PO SCH (09:12)
[2018-05-01] MEDS: ENOXAPARIN SODIUM INJ 40 MG/0.4 ML DISP.SYRIN SUBCUT SCH (09:13)
[2018-05-01] MEDS: ATORVASTATIN CALCIUM 80 MG TABLET PO SCH (09:13)
[2018-05-01] MEDS: ERTAPENEM SODIUM 1 GM in NORMAL SALINE 50 ML IV SCH (09:13)
[2018-05-01] MEDS: LISINOPRIL 5 MG TABLET PO SCH (09:13)
[2018-05-01] MEDS: BUPROPION HCL 75 MG TABLET PO SCH (09:14)
[2018-05-01] MEDS: METHIMAZOLE 5 MG TABLET PO SCH (09:14)
--- NOTE | 2018-05-01 11:36 | PDOC DISCHARGE SUMMARY ---
General - Admit/Disc Date/PCP Admission Date/Primary Care Provider: 04/27/18 08:55 [facility], [facility] Discharge Date: 05/01/18 - Discharge Diagnosis (1) Complicated UTI (urinary tract infection) Is this a current diagnosis for this admission?: Yes Summary: Urine culture grew out Klebsiella Enterobacter and procidentia. Her antibiotics have been just adjusted accordingly. She will need to complete a total of 14 days of antibiotics. She is being discharged home on Bactrim. There has been an interaction with Bactrim and lisinopril as far as his elevated potassium levels. This can be followed up on by her PCP. (2) Lactic acidosis Is this a current diagnosis for this admission?: Yes Summary: Resolved. Secondary to a complicated UTI from suprapubic catheter. (3) Type 2 diabetes mellitus Is this a current diagnosis for this admission?: Yes Summary: Blood sugars have been well controlled during her admission. She is being discharged back on her home regimen. (4) COPD (chronic obstructive pulmonary disease) Is this a current diagnosis for this admission?: Yes Summary: No signs of acute exacerbation. Continue on home medications at discharge. (5) Cerebral palsy Is this a current diagnosis for this admission?: Yes Summary: Currently at baseline. (6) Hypertension Is this a current diagnosis for this admission?: Yes Summary: Blood pressures been stable during her admission. To continue with her home medications and monitor (7) Hyperlipidemia Is this a current diagnosis for this admission?: Yes Summary: Currently on statin therapy. This can be restarted on discharge. - Additional Information Resuscitation Status: Full Code Discharge Diet: Diabetic Discharge Activity: Activity As Tolerated Prescriptions: Amox Tr/Potassium Clavulanate [Augmentin 875-125 mg Tablet] 1 tab PO BID #20 tablet Sulfamethoxazole/Trimethoprim [Bactrim Ds Tablet] 1 each PO BID 10 Days #20 tablet Home Medications: Arformoterol Tartrate [Brovana Inhalation Solution 15 mcg/2 mL] 1 vial IH BIDP PRN 04/27/18 Atorvastatin Calcium [Lipitor] 80 mg PO DAILY 04/27/18 Bupropion HCl [Wellbutrin 75 mg Tablet] 75 mg PO DAILY 04/27/18 Cyclobenzaprine HCl [Flexeril 5 mg Tablet] 5 mg PO BID 04/27/18 Docusate Sodium [Colace 100 mg Capsule] 100 mg PO BID 04/27/18 Fexofenadine HCl [Isidra] 60 mg PO DAILY 04/27/18 Gabapentin [Neurontin 100 mg Capsule] 300 mg PO Q8 04/27/18 Insulin Aspart [Novolog Flexpen] 7 unit SQ QPM 04/27/18 Insulin Aspart [Novolog Flexpen] 8 unit SQ NOON 04/27/18 Insulin Aspart [Novolog Flexpen] 8 unit SQ QAM 04/27/18 Insulin Glargine,Hum.rec.anlog [Lantus Insulin 100 Unit/mL] 14 unit SUBCUT QHS 0 04/27/18 Lisinopril [Prinivil 5 mg Tablet] 5 mg PO DAILY 04/27/18 Metformin HCl [Metformin HCl ER] 1,500 mg PO QPM 04/27/18 Methimazole [Tapazole 5 mg Tablet] 5 mg PO BID 04/27/18 Oxybutynin Chloride [Oxybutynin Chloride ER] 15 mg PO DAILY 04/27/18 Amox Tr/Potassium Clavulanate [Augmentin 875-125 mg Tablet] 1 tab PO BID #20 tablet 05/01/18 Sulfamethoxazole/Trimethoprim [Bactrim Ds Tablet] 1 each PO BID 10 Days #20 tablet 05/01/18 History of Present Illness Patient complains of: This is a 52 year old female patient with past medical history of neurogenic bladder and chronic suprapubic catheter placement, bronchial asthma, diabetes COPD and cerebral palsy presented with chief complaint of nausea and vomiting of 3 days duration. Her indwelling suprapubic catheter has not been replaced for the past 56 days (supposedly changed monthly ). She was admitted for complicated UTI. No acute event overnight. She says she feels better. No recurrence of nausea/vomiting so far. Urine culture grew Klebsiella and enterobacter. there are acceptable oral options and so her abx will be changed accordingly. History of Present Illness: ARABELLA HOWELL is a 52 year old female Hospital Course Hospital Course: Her admission she is progressed well. Blood pressures been well controlled. Her diet is returned back to normal. She has been afebrile for greater than 24 hours. Urine culture grew Klebsiella Enterobacter and provedencia. Her antibiotics have been adjusted accordingly. She is returned back to her baseline functioning and would like to be discharged home. Physical Exam Vital Signs: Temp Pulse Resp BP Pulse Ox 98.6 F 87 15 107/68 100 05/01/18 08:01 05/01/18 08:01 05/01/18 08:01 05/01/18 08:01 05/01/18 08:01 Intake & Output 04/30/18 05/01/18 05/02/18 06:59 06:59 06:59 Intake Total 1470 1946 50 Output Total 720 502 Balance 750 1444 50 Weight 77.2 kg 87.1 kg General appearance: PRESENT: no acute distress, cooperative, obese Eye exam: ABSENT: scleral icterus Mouth exam: PRESENT: moist, neck supple Teeth exam: PRESENT: poor dentation Neck exam: PRESENT: full ROM. ABSENT: JVD, tenderness, thyromegaly, tracheal deviation Respiratory exam: PRESENT: clear to auscultation ankit. ABSENT: accessory muscle use Cardiovascular exam: PRESENT: RRR. ABSENT: gallop, rubs GI/Abdominal exam: PRESENT: normal bowel sounds, soft. ABSENT: ascites, tenderness Neurological exam: PRESENT: alert, oriented to person, oriented to place, oriented to time, oriented to situation Psychiatric exam: PRESENT: normal mood Results Laboratory Results: 04/30/18 05:52 04/30/18 05:52 04/27/18 00:10 Suprapubic Catheter Urine Culture - Final Klebsiella Pneumoniae Enterococcus Faecalis(Group D) Providencia Stuartii Klebsiella Pneumoniae#2 Impressions: Chest X-Ray 04/26/18 21:47 IMPRESSION: No acute disease. Abdomen/Pelvis CT 04/29/18 00:00 IMPRESSION: 1. Interval placement of a suprapubic catheter into the urinary bladder with the distal tip terminating in the distal right ureter resulting in mild right hydronephrosis. 2. Mild stool burden, improved from prior. 3. Additional findings, similar to prior. Qualifiers - * PATIENT BEING DISCHARGED WITH ANY OF THE FOLLOWING DIAGNOSIS: No Plan Time Spent: Greater than 30 Minutes
[2018-05-01 17:13] VITALS: BP 143/100
== END 2018-05-01 17:32 | disposition home or self-care (01) | DRG 700 ==
LOC: ER 21:28 → UNDOADMIN 04-27 08:55 → EH 04-27 08:55 → 4S 04-27 18:36
PROVIDERS: ADMIT Internal Medicine; ATTEND Internal Medicine
PROC: 3E0F73Z Introduction of Anti-inflammatory into Respiratory Tract, Via Natural or Artificial Opening (ICD-10-PCS; principal; 2018-04-28)
PROC: 3E02340 Introduction of Influenza Vaccine into Muscle, Percutaneous Approach (ICD-10-PCS; 2018-05-01)
DX: T83.511A Infection and inflammatory reaction due to indwelling urethral catheter, initial encounter (principal); N39.0 Urinary tract infection, site not specified; B96.1 Klebsiella pneumoniae [K. pneumoniae] as the cause of diseases classified elsewhere; B95.2 Enterococcus as the cause of diseases classified elsewhere; Y73.1 Therapeutic (nonsurgical) and rehabilitative gastroenterology and urology devices associated with adverse incidents; E11.9 Type 2 diabetes mellitus without complications; J44.9 Chronic obstructive pulmonary disease, unspecified; I10 Essential (primary) hypertension; E78.5 Hyperlipidemia, unspecified; G80.9 Cerebral palsy, unspecified; N31.9 Neuromuscular dysfunction of bladder, unspecified; K21.9 Gastro-esophageal reflux disease without esophagitis; F32.9 Major depressive disorder, single episode, unspecified; Z23 Encounter for immunization; Z79.4 Long term (current) use of insulin; Z79.899 Other long term (current) drug therapy; Z88.6 Allergy status to analgesic agent; Z88.3 Allergy status to other anti-infective agents; Z91.040 Latex allergy status; Z88.0 Allergy status to penicillin; Z88.2 Allergy status to sulfonamides; Z88.8 Allergy status to other drugs, medicaments and biological substances; Z91.018 Allergy to other foods
CPT/HCPCS: 36415; 71045; 74177; 80048; 80053; 80069; 81001; 82803; 82962; 83036; 83605; 85025; 85610; 87040; 87086; 87088; 87186; 87493; 90471; 90686; 93005; 93010; 99285; G0008; J1335; J1650; J1815; J2405; J2550; J3490; J7030

== ENCOUNTER 2018-05-05 20:39 | Emergency (ER) | payer MEDICARE, MEDICAID ==
[2018-05-05] MEDS ORDERED: RINGERS SOLUTION,LACTATED 1,000 ML IV ONE ×2 (21:27→23:53)
[2018-05-05 21:28] LABS: ABSOLUTE BASOPHILS # (AUTO) 0.1 10^3/uL (0.0-0.2); ABSOLUTE EOSINOPHILS # (AUTO) 0.2 10^3/uL (0.0-0.6); ABSOLUTE LYMPHOCYTES (AUTO) 1.6 10^3/uL (0.5-4.7); ABSOLUTE NEUT (AUTO) 8.2 10^3/uL (1.7-8.2); BASOPHILS % (AUTO) 0.6 % (0-2); EOSINOPHILS % (AUTO) 1.7 % (0-6); HEMATOCRIT 36.8 % (36.0-47.0); HEMOGLOBIN 11.9 g/dL (12.0-15.5); LYMPHOCYTES % (AUTO) 14.5 % (13-45); MEAN CORPUSCULAR HEMOGLOBIN 25.3 pg (27.0-33.4); MEAN CORPUSCULAR HGB CONC 32.4 g/dL (32.0-36.0); MEAN CORPUSCULAR VOLUME 78 fl (80-97); MONOCYTES % (AUTO) 8.9 % (3-13); PLATELET COUNT 322 10^3/uL (150-450); RED BLOOD COUNT 4.72 10^6/uL (3.72-5.28); SEGMENTED NEUTROPHILS % (AUTO) 74.3 % (42-78); TOTAL CELLS COUNTED % (AUTO) 100 %
[2018-05-05] MEDS ORDERED: ONDANSETRON HCL INJ/PF 4 MG/2 ML SDV IV ONE (21:28)
[2018-05-05 21:58] LABS: ALANINE AMINOTRANSFERASE 29 U/L (9-52); ALBUMIN 4.2 g/dL (3.5-5.0); ALKALINE PHOSPHATASE 97 U/L (38-126); ANION GAP 18 (5-19); ASPARTATE AMINO TRANSFERASE 20 U/L (14-36); BILIRUBIN,DIRECT 0.4 mg/dL (0.0-0.4); BILIRUBIN,TOTAL 0.4 mg/dL (0.2-1.3); BLOOD UREA NITROGEN 20 mg/dL (7-20); CALCIUM 10.8 mg/dL (8.4-10.2); CARBON DIOXIDE 18 mmol/L (22-30); CHLORIDE 101 mmol/L (98-107); GLUCOSE 94 mg/dL (75-110); POTASSIUM 4.3 mmol/L (3.6-5.0); SODIUM 137.1 mmol/L (137-145); TOTAL PROTEIN 7.2 g/dL (6.3-8.2)
--- NOTE | 2018-05-05 22:00 | EKG REPORT ---
SEVERITY:- OTHERWISE NORMAL ECG - SINUS TACHYCARDIA : Confirmed by: Ashley Garcia 05-May-2018 21:59:27
[2018-05-05 23:30] LABS: APPEARANCE,URINE CLOUDY; BILIRUBIN,URINE NEGATIVE (NEGATIVE); CALCIUM OXALATE CRYSTALS,URINE RARE /HPF; COLOR,URINE YELLOW; GLUCOSE, URINE NEGATIVE (NEGATIVE); KETONES,URINE NEGATIVE (NEGATIVE); LEUKOCYTE ESTERASE,URINE LARGE (NEGATIVE); NITRITE,URINE NEGATIVE (NEGATIVE); PROTEIN,URINE 100 mg/dL (NEGATIVE); URINE SPECIFIC GRAVITY 1.019; UROBILINOGEN,URINE NEGATIVE mg/dL (<2.0)
--- NOTE | 2018-05-06 02:09 | ER Document Report ---
ED General - General Chief Complaint: Nausea Stated Complaint: GENERAL SICKNESS Time Seen by Provider: 05/05/18 21:02 Primary Care Provider: [facility] FNP [Primary Care Provider] - Follow up as needed Notes: Patient is a 52-year-old female presents the emergency department for generalized nausea and weakness. Patient was just recently discharged on 05/01/2018 during this facility for a complicated urinary tract infection. Was placed on Augmentin and Bactrim. States she was inevitably feeling better and started with some generalized nausea for the last 24 hours. States she feels as though she has been sleeping more than normal. Patient states she has not been drinking fluids or eating much due to her generalized nausea. Patient is denying any abdominal pain, vomiting, diarrhea, shortness of breath, chest pain, fevers. Past medical history: Cerebral palsy, suprapubic cath, diabetes Medications: Patient is unsure of names Allergies: Multiple TRAVEL OUTSIDE OF THE [place] IN LAST 30 DAYS: No - Related Data Allergies/Adverse Reactions: acetaminophen [From Darvocet-N] Allergy (Verified 05/05/18 21:27) albuterol Allergy (Verified 05/05/18 21:27) azithromycin [From Zithromax] Allergy (Verified 05/05/18 21:27) ciprofloxacin [From Cipro] Allergy (Verified 05/05/18 21:27) coconut Allergy (Verified 05/05/18 21:27) latex Allergy (Verified 05/05/18 21:27) magnesium Allergy (Verified 05/05/18 21:27) nitrofurantoin Allergy (Verified 05/05/18 21:27) Penicillins Allergy (Verified 05/05/18 21:27) pork derived (porcine) Allergy (Verified 05/05/18 21:27) propoxyphene Allergy (Verified 05/05/18 21:27) Sulfa (Sulfonamide Antibiotics) Allergy (Verified 05/05/18 21:27) Past Medical History - General Information source: Patient, Friend - Social History Smoking Status: Never Smoker Chew tobacco use (# tins/day): No Drug Abuse: None Family History: Reviewed & Not Pertinent Patient has suicidal ideation: No Patient has homicidal ideation: No - Past Medical History Cardiac Medical History: Reports: Hx Congestive Heart Failure, Hx Hyperchol esterolemia, Hx Hypertension Pulmonary Medical History: Reports: Hx COPD Endocrine Medical History: Reports: Hx Diabetes Mellitus Type 2 Renal/ Medical History: Denies: Hx Peritoneal Dialysis GI Medical History: Reports: Hx Gastroesophageal Reflux Disease Psychiatric Medical History: Reports: Hx Depression Past Surgical History: Reports: Hx Gynecologic Surgery, Hx Kidney (Renal Surgery), Hx Orthopedic Surgery, Hx Urinary Tract Surgery Review of Systems - Review of Systems Constitutional: See HPI EENT: No symptoms reported Cardiovascular: No symptoms reported Respiratory: No symptoms reported Gastrointestinal: See HPI Genitourinary: See HPI Female Genitourinary: No symptoms reported Musculoskeletal: No symptoms reported Skin: No symptoms reported Hematologic/Lymphatic: No symptoms reported Neurological/Psychological: See HPI Physical Exam - Vital signs Vitals: Resp Pulse Ox 20 99 05/05/18 20:49 05/05/18 20:49 - Notes Notes: GENERAL: Alert, interacts well. No acute distress. HEAD: Normocephalic, atraumatic. EYES: Pupils equal, round, and reactive to light. Extraocular movements intact. ENT: Oral mucosa dry, tongue midline. NECK: Full range of motion. Supple. Trachea midline. LUNGS: Clear to auscultation bilaterally, no wheezes, rales, or rhonchi. No respiratory distress. HEART: Tachycardic rate and rhythm. No murmur ABDOMEN: Soft, non-tender. Non-distended. Bowel sounds present in all 4 quadrants. EXTREMITIES: Moves both upper extremities spontaneously. No edema, normal radial and dorsalis pedis pulses bilaterally. No cyanosis. NEUROLOGICAL: Alert and oriented x3. Normal speech. cranial nerves II through XII grossly intact PSYCH: Normal affect, normal mood. SKIN: Warm, dry, normal turgor. No rashes or lesions noted. Course - Re-evaluation Re-evalutation: 05/06/18 02:08 Patient was initially noted to have dry mucous membranes and was found to be tachycardic without a fever. Patient's labs reveal very slight leukocytosis of 11. Patient's urine does show leukoesterase, 77 WBCs, sent for urine culture. In reviewing past visits it is seen that the patient had been placed on Augmentin and Bactrim for her urinary tract infection. In reviewing urine cultures Bactrim and Augmentin are both sensitive to the bacteria that was grown. Patient states she has been taking them as prescribed. After treatment with fluids and anti-emetics patient states she overall feels a lot better. Patient was able to p.o. liquids with no vomiting. Discussed close follow-up with primary care provider and return precautions. Patient no longer tachycardic, has moist mucous membranes is shahzad liquids without vomiting. Patient stable for discharge. - Vital Signs Vital signs: Temp Pulse Resp BP Pulse Ox 98.6 F 27 H 109/84 96 05/05/18 20:52 05/06/18 01:01 05/06/18 01:01 05/06/18 01:01 - Laboratory Result Diagrams: 05/05/18 21:17 05/05/18 21:17 Laboratory results interpreted by me: 05/05/18 05/05/18 05/05/18 21:17 21:17 22:07 WBC 11.0 H Hgb 11.9 L MCV 78 L MCH 25.3 L RDW 17.0 H Carbon Dioxide 18 L Calcium 10.8 H Urine Protein 100 H Urine Blood SMALL H Ur Leukocyte Esterase LARGE H Urine Ascorbic Acid 40 H Discharge - Discharge Clinical Impression: Nausea Urinary tract infection Qualifiers: Urinary tract infection type: catheter-associated UTI Indwelling urinary cathet er type: indwelling urethral catheter Encounter type: subsequent encounter Qualified Code(s): T83.511D - Infection and inflammatory reaction due to indwelling urethral catheter, subsequent encounter Condition: Stable Disposition: HOME, SELF-CARE Instructions: Nausea or Vomiting, Nonspecific ([facility]), Urinary Tract Infection ([facility]) Additional Instructions: As we discussed you have been seen and treated in the emergency department for your generalized nausea and urinary tract infection. Please make sure you are taking antibiotics as prescribed. Please also take antinausea medication as needed. Please make sure you are staying well-hydrated with Gatorade or Pedialyte. Please also make sure you keep your appointment with your primary care provider on Monday. Please immediately return to the emergency room should you have any other concerning symptoms. Prescriptions: Ondansetron [Zofran Odt 4 mg Tablet] 1 - 2 tab PO Q4H PRN #15 tab.rapdis PRN Reason: For Nausea/Vomiting Referrals: [facility], [facility] [employer] [Primary Care Provider] - Follow up as needed
[2018-05-06 03:08] VITALS: BP 125/54
== END 2018-05-06 03:12 | disposition home or self-care (01) ==
LOC: ER 20:39
DX: T83.511A Infection and inflammatory reaction due to indwelling urethral catheter, initial encounter (principal); N39.0 Urinary tract infection, site not specified; B96.89 Other specified bacterial agents as the cause of diseases classified elsewhere; Y84.6 Urinary catheterization as the cause of abnormal reaction of the patient, or of later complication, without mention of misadventure at the time of the procedure; R00.0 Tachycardia, unspecified; R11.0 Nausea; R53.1 Weakness; G80.9 Cerebral palsy, unspecified; E11.9 Type 2 diabetes mellitus without complications; I10 Essential (primary) hypertension; J44.9 Chronic obstructive pulmonary disease, unspecified; Z88.5 Allergy status to narcotic agent; Z88.8 Allergy status to other drugs, medicaments and biological substances; Z88.1 Allergy status to other antibiotic agents; Z91.040 Latex allergy status; Z91.018 Allergy to other foods; Z88.0 Allergy status to penicillin; Z88.2 Allergy status to sulfonamides
CPT/HCPCS: 93005; 99283; 96361; 96374; 36415; 87040; 87086; 85025; 87077; 80053; 81001; 93010; J2405; J7120 ×2

== ENCOUNTER 2018-05-26 14:15 | Emergency (ER) | payer MEDICARE, MEDICAID ==
[2018-05-26] MEDS ORDERED: TRAMADOL HCL 50 MG TABLET PO ONE (15:49)
[2018-05-26] MEDS ORDERED: BUPIVACAINE HCL 0.5 % INJ/PF 30 ML SDV INJ ONE (15:49)
[2018-05-26] MEDS ORDERED: CLINDAMYCIN HCL 150 MG CAPSULE PO ONE (15:49)
--- NOTE | 2018-05-26 16:05 | ER Document Report ---
ED Oral Problem - General Chief Complaint: Toothache Stated Complaint: TOOTHACHE Time Seen by Provider: 05/26/18 15:21 Primary Care Provider: [facility] FNP [Primary Care Provider] - Follow up as needed Mode of Arrival: Medic Information source: Patient TRAVEL OUTSIDE OF THE [place] IN LAST 30 DAYS: No - HPI Patient complains to provider of: Toothache Notes: Patient is here with complaints of left lower dental pain. The patient is noted to have widespread dental decay, she states that she was on amoxicillin a few weeks ago and has since finished it. She is in the process of getting seen by her dentist for possible extraction. Over the last few days she has had some increasing pain in the left lower teeth. No swelling. No difficulty breathing or swallowing. No nausea, vomiting,. No chest pain or shortness of breath. No rash. Pain is constant, moderate to severe, worse with eating, nothing makes it better. She denies any other specific complaints at this time. - Related Data Allergies/Adverse Reactions: acetaminophen [From Darvocet-N] Allergy (Verified 05/05/18 21:27) albuterol Allergy (Verified 05/05/18 21:27) azithromycin [From Zithromax] Allergy (Verified 05/05/18 21:27) ciprofloxacin [From Cipro] Allergy (Verified 05/05/18 21:27) coconut Allergy (Verified 05/05/18 21:27) latex Allergy (Verified 05/05/18 21:27) magnesium Allergy (Verified 05/05/18 21:27) nitrofurantoin Allergy (Verified 05/05/18 21:27) Penicillins Allergy (Verified 05/05/18 21:27) pork derived (porcine) Allergy (Verified 05/05/18 21:27) propoxyphene Allergy (Verified 05/05/18 21:27) Sulfa (Sulfonamide Antibiotics) Allergy (Verified 05/05/18 21:27) Past Medical History - Social History Smoking Status: Never Smoker Family History: Reviewed & Not Pertinent Patient has suicidal ideation: No Patient has homicidal ideation: No - Past Medical History Cardiac Medical History: Reports: Hx Congestive Heart Failure, Hx Hypercholesterolemia, Hx Hypertension Pulmonary Medical History: Reports: Hx COPD Endocrine Medical History: Reports: Hx Diabetes Mellitus Type 2 Renal/ Medical History: Denies: Hx Peritoneal Dialysis GI Medical History: Reports: Hx Gastroesophageal Reflux Disease Psychiatric Medical History: Reports: Hx Depression Past Surgical History: Reports: Hx Gynecologic Surgery, Hx Kidney (Renal Surgery), Hx Orthopedic Surgery, Hx Urinary Tract Surgery Review of Systems - Review of Systems -: Yes All other systems reviewed and negative Physical Exam - Vital signs Vitals: Temp Pulse Resp BP Pulse Ox 99.1 F 100 15 145/100 H 95 05/26/18 14:59 05/26/18 14:59 05/26/18 14:59 05/26/18 14:59 05/26/18 14:59 - Notes Notes: GENERAL: alert, cooperative, nontoxic, no distress. HEAD: normocephalic, atraumatic EYES: conjunctiva pink without discharge, no external redness or swelling. EARS: no external swelling, no external redness NOSE: atraumatic, no external swelling MOUTH/THROAT: mucous membranes moist and pink. Widespread dental decay. Tenderness to palpation along the left lower gumline. No drainable abscess identified. No facial swelling. No sublingual swelling or induration. No trismus or drooling. NECK: soft, supple, full range of motion, no meningismus. CHEST: no distress, lungs clear and equal throughout. No wheezing, rales, rhonchi. CARDIAC: regular rate and rhythm, no murmur, normal capillary refill, normal pulses. BACK: full range of motion, no CVA tenderness. EXTREMITIES: No redness, no swelling. NEURO: alert and oriented 3, no focal deficits, full range of motion of all extremities. PYSCH: appropriate mood, affect. Patient is cooperative. SKIN: pink, warm, dry, no rash. Course - Re-evaluation Re-evalutation: 05/26/18 16:01 Patient is nontoxic-appearing with stable vitals. Patient here with complaints of dental pain to the left lower teeth. She is noted to have widespread dental decay. I do not appreciate any drainable abscess at this time. No sign of Sascha angina or other serious bacterial infection. This point the patient was offered a dental block which she agreed to. She will be given a dose of clindamycin and Ultram here in emergency department and will be discharged home with a prescription for clindamycin and a very small supply of Ultram with instructions to follow-up with her dentist at the next available appointment. Follow-up sooner for worsening pain, fever, swelling, difficulty breathing or swelling, persistent vomiting, or for any further concerns. The patient's emergency department workup and current diagnosis were explained to the patient and or family. Follow-up instructions were provided. Medications if prescribed were discussed. Instructions for when to return to the emergency department including specific worrisome symptoms were discussed with the patient and/or family. - Vital Signs Vital signs: Temp Pulse Resp BP Pulse Ox 99.1 F 100 15 145/100 H 95 05/26/18 14:59 05/26/18 14:59 05/26/18 14:59 05/26/18 14:59 05/26/18 14:59 Procedures - Additional Procedures Dental block Additional Procedures: Other - Left mental nerve block with bupivacaine performed. No immediate comp occasions. Patient tolerated procedure well. Discharge - Discharge Clinical Impression: Pain due to dental caries Condition: Stable Disposition: HOME, SELF-CARE Instructions: [facility], Clindamycin ([facility]), Oral Narcotic Medication ([facility]), Toothache ([facility]) Additional Instructions: Take medication as prescribed. Follow-up with your dentist at the next available appointment. Follow up sooner for worsening pain, fever, swelling, difficulty breathing or swelling, persistent vomiting, or for any further concerns. Prescriptions: Tramadol HCl [Ultram 50 mg Tablet] 50 mg PO Q6HP PRN #9 tablet PRN Reason: Clindamycin HCl [Cleocin 300 mg Capsule] 300 mg PO QID #40 capsule Forms: Smoking Cessation Education, Elevated Blood Pressure Referrals: [facility] FNP [Primary Care Provider] - Follow up as needed [facility] [Provider Group] - Follow up as needed [facility] [Provider Group] - Follow up as needed
[2018-05-26 16:44] VITALS: BP 133/112
== END 2018-05-26 16:44 | disposition home or self-care (01) ==
LOC: ER 14:15
DX: K02.9 Dental caries, unspecified (principal); K08.89 Other specified disorders of teeth and supporting structures; E11.9 Type 2 diabetes mellitus without complications; J44.9 Chronic obstructive pulmonary disease, unspecified; I10 Essential (primary) hypertension; Z88.6 Allergy status to analgesic agent; Z88.8 Allergy status to other drugs, medicaments and biological substances; Z88.1 Allergy status to other antibiotic agents; Z91.018 Allergy to other foods; Z91.040 Latex allergy status; Z88.2 Allergy status to sulfonamides
CPT/HCPCS: 99284; 64400; J3490; A9270 ×2